=== PATIENT | female | born 1970 | race Caucasian/White ===

== ENCOUNTER → 2018-08-24 07:51 | Outpatient (POV) | payer BC, SELFPAY | PROVIDERS: Visit Provider Dermatology | DX: Z00.00 Encounter for general adult medical examination without abnormal findings (principal) ==

== ENCOUNTER → 2020-11-15 09:25 | Outpatient (CLI) | payer BC, SELFPAY ==
[2020-11-15 09:53] LABS: Basophils # 0.1 K/mm3 (0-0.2); Basophils % 0.8 % (0.1-2.0); Eosinophils # 0.2 K/mm3 (0.0-0.4); Eosinophils % 2.2 % (0.1-12.0); Hemoglobin 14.2 g/dL (12.2-16.2); Lymphocytes # 2.4 K/mm3 (0.7-4.5); Lymphocytes % 28.6 % (10-50); Mean Corpuscular HGB Conc 34.5 g/dL (31.8-35.4); Mean Corpuscular Hemoglobin 31.6 pg (27.0-31.2); Mean Corpuscular Volume 91.4 fl (81-99); Mean Platelet Volume 7.3 fl (7.4-10.4); Monocytes # 0.3 K/mm3 (0.1-1.0); Monocytes % 4.2 % (1.7-9.3); Neutrophils # 5.3 K/mm3 (1.8-7.8); Neutrophils % 64.1 % (37.0-80.0); Platelet Count 277 K/mm3 (142-424); Red Blood Count 4.49 M/mm3 (4.20-5.40); Red Cell Distribution Width 13.4 % (11.5-17.5); White Blood Count 8.3 K/mm3 (4.8-10.8)
[2020-11-15 12:42] LABS: Alanine Aminotransferase 27 U/L (12-78); Albumin Level 4.2 g/dl (3.5-5.0); Albumin/Globulin Ratio 1.4 (1.1-1.8); Alkaline Phosphatase 99 U/L (38-126); Anion Gap 13.4 mEq/L (5-15); Aspartate Amino Transferase 22 U/L (14-36); Bilirubin,Total 0.5 mg/dl (0.2-1.3); Blood Urea Nitrogen 14 mg/dl (7-17); Carbon Dioxide 23 mmol/L (22.0-30.0); Chloride 104 mmol/L (98-107); Chol/HDL Ratio 3.6 (1-3.5); Cholesterol 196 mg/dl (140-200); Estimated Glomerular Filt Rate 77 ml/min (>60); GFR (African American) 93 ML/MIN (>60); Glucose 91 mg/dl (74-100); HDL Cholesterol 55 mg/dl (40-60); Potassium 4.4 mmoL/L (3.5-5.1); Sodium 136 mmol/L (136-145); Total Protein,Serum 7.2 g/dl (6.3-8.2); Triglycerides 147 mg/dl (30-150); VLDL Cholesterol 29 mg/dL (0-40)
[2020-11-15 12:53] LABS: Direct LDL Cholesterol 115.44 mg/dL (100-129)
[2020-11-15 13:00] LABS: 25-OH Vitamin D, Total 25.7 ng/mL (30-100)
[2020-11-15 13:13] LABS: Thyroid Stimulating Hormone 3.28 uIU/mL (0.465-4.68)
[2020-11-15 13:31] LABS: Vitamin B12 331 pg/mL (239-931)
== END ==
PROVIDERS: Visit Provider Physician Assistant
DX: R53.83 Other fatigue (principal); E55.9 Vitamin D deficiency, unspecified; Z13.220 Encounter for screening for lipoid disorders
CPT/HCPCS: 36415; 80053; 80061; 82306; 82607; 84443; 85025

== ENCOUNTER → 2021-01-23 08:38 | Outpatient (CLI) | payer BC, SELFPAY ==
--- NOTE | 2021-01-23 08:44 | XR_ITS ---
PROCEDURE: XR FOOT WT BEARING RT 3V CLINICAL INDICATION: comparison COMPARISON: CR FTR3 FOOT-RT-3 VIEWS from 01/19/2015 FINDINGS: No fracture or dislocation. No lytic or blastic change. There is normal mineralization. The joint spaces are well-preserved. No significant degenerative/arthritic changes. No erosive changes evident. Other findings:Small calcaneal spur IMPRESSION: No acute findings. Dictated by: Baljeet Foley MD 01/23/2021 11:31 Baljeet Foley MD in [place] 01/23/2021 11:31
--- NOTE | 2021-01-23 08:44 | XR_ITS ---
PROCEDURE: XR FOOT WT BEARING LT 3V CLINICAL INDICATION: pain Foot pain COMPARISON: CR FTR3 FOOT-RT-3 VIEWS from 01/19/2015 FINDINGS: No fracture or dislocation. No lytic or blastic change. There is normal mineralization. The joint spaces are well-preserved. No significant degenerative/arthritic changes. No erosive changes evident. Other findings:Small bone spur at the calcaneus IMPRESSION: No acute findings. Dictated by: Baljeet Foley MD 01/23/2021 11:31 Baljeet Foley MD in [facility] 01/23/2021 11:31
== END ==
PROVIDERS: PCP Family Medicine; Visit Provider Podiatrist
DX: M79.672 Pain in left foot (principal); M79.671 Pain in right foot
CPT/HCPCS: 73630

== ENCOUNTER → 2021-03-04 14:17 | Outpatient (CLI) | payer BC, SELFPAY ==
--- NOTE | 2021-03-04 14:17 | MR_ITS ---
PROCEDURE INFORMATION: Exam: MR Left Lower Extremity Joint Without and With Contrast; Ankle Exam date and time: 03/04/2021 2:17 PM Age: 50 years old Clinical indication: Patient HX: Left foot/ankle pain TECHNIQUE: Imaging protocol: MR of the Left lower extremity without and with contrast. Exam focused on the ankle. Contrast material: PROHANCE; Contrast volume: 20 ml; Contrast route: IV; COMPARISON: CR XR FOOT WT BEARING LT 3V 01/23/2021 9:18 AM FINDINGS: Bones and cartilage: Cystic change is identified within the bone marrow of the medial talar dome, which is likely degenerative or due to osteochondral injury. No acute marrow edema. Spurring of the medial malleolus and adjacent talus. Calcaneal spurs. Thickening of the medial band of the proximal plantar fascia with minimal adjacent edema. This is consistent with plantar fasciitis. Joint spaces: Minimal tibiotalar and subtalar joint effusions. LIGAMENTS: Distal tibiofibular syndesmosis: See Anterior talofibular ligament finding. Anterior talofibular ligament: There is increased signal intensity within the anterior talofibular ligament with mild adjacent edema. Partial tear is suggested. Partial tear is also suggested at the anterior tibiofibular ligament. Posterior talofibular ligament: Heterogeneous signal intensity of the posterior talofibular ligament. Partial tear cannot be excluded. Calcaneofibular ligament: Mild edema adjacent to the calcaneofibular ligament, consistent with ligament sprain or extension of adjacent soft tissue swelling. Deltoid ligament complex: A linear focus of increased STIR signal intensity is identified within the deltoid ligament, consistent with partial tear. TENDONS: Flexor tendons of foot: Unremarkable as visualized. Tibialis posterior tendon: Mild tenosynovitis of the posterior tibialis tendon. Peroneal tendons: Unremarkable as visualized. Extensor tendons of foot: Unremarkable as visualized. Tibialis anterior tendon: Unremarkable as visualized. Achilles tendon: Unremarkable as visualized. Tarsal canal (Sinus tarsi): Minimal edema within the sinus tarsi. Muscles: No visualized acute abnormality. Soft tissues: Mild soft tissue swelling surrounds the ankle. Plantar fascia: See Bones and cartilage finding. IMPRESSION: 1. Cystic change is identified within the bone marrow of the medial talar dome, which is likely degenerative or due to osteochondral injury. No acute marrow edema. 2. Partial tear of the deltoid ligament. 3. Suggested partial tears of the anterior talofibular and tibiofibular ligaments. 4. Mild edema adjacent to the calcaneofibular ligament, consistent with ligament sprain or extension of adjacent soft tissue swelling. 5. Mild tenosynovitis of the posterior tibialis tendon. 6. Mild soft tissue swelling surrounds the ankle. 7. Calcaneal spurs. Thickening of the medial band of the proximal plantar fascia with minimal adjacent edema. This is consistent with plantar fasciitis. 8. Additional findings described above.
--- NOTE | 2021-03-04 14:17 | MR_ITS ---
PROCEDURE INFORMATION: Exam: MR Left Lower Extremity Other Than Joint Without and With Contrast; Foot Exam date and time: 03/04/2021 2:17 PM Age: 50 years old Clinical indication: Left; Patient HX: Stress fracture, foot pain TECHNIQUE: Imaging protocol: MR of the Left lower extremity without and with intravenous contrast. Exam focused on the foot. Contrast material: PROHANCE; Contrast volume: 20 ml; Contrast route: IV; COMPARISON: 1. MR ANKLE LT WO/W CON 03/04/2021 2:50:53 PM 2. CR XR FOOT WT BEARING LT 3V 01/23/2021 9:18 AM FINDINGS: Bones and cartilage: For discussion of findings involving the ankle/hindfoot, refer to the MRI ankle report from the same day. Cystic change is identified within the bone marrow of the medial talar dome, which is likely degenerative or due to osteochondral injury. No acute marrow edema involving the talus. Calcaneal spurs. Linear foci of STIR hyperintensity are visualized within the 3rd metatarsal shaft, likely representing nutrient vessels. No definitive marrow edema involving the 3rd metatarsal shaft when correlated with postcontrast images. No acute marrow edema on the remainder of this study. For discussion of ligaments of the ankle, refer to the MRI ankle report from the same day. No dislocation of the foot. Joint spaces: Minimal tibiotalar and subtalar joint effusions. Small 1st and 2nd MTP joint effusions. Small 1st IP joint effusion. LIGAMENTS: Lisfranc ligament: No evidence of tear. TENDONS: Flexor tendons of foot: Unremarkable. No evidence of tear. Tibialis posterior tendon: Mild tenosynovitis of the posterior tibialis tendon. Peroneal tendons: Unremarkable as visualized. Extensor tendons of foot: Unremarkable. No evidence of tear. Tibialis anterior tendon: Unremarkable as visualized. Tarsal canal (Sinus tarsi): Edema within the sinus tarsi. Soft tissues: Mild soft tissue swelling of the ankle and dorsum of the foot. Plantar fascia: Thickening of the medial band of the proximal plantar fascia with minimal adjacent soft tissue edema. This is consistent with plantar fasciitis. IMPRESSION: 1. Cystic change is identified within the bone marrow of the medial talar dome, which is likely degenerative or due to osteochondral injury. No acute marrow edema involving the talus. 2. Calcaneal spurs. Thickening of the medial band of the proximal plantar fascia with minimal adjacent soft tissue edema. This is consistent with plantar fasciitis. 3. Mild soft tissue swelling of the ankle and dorsum of the foot. 4. Small effusions. 5. No definitive acute marrow edema involving the foot. 6. Mild tenosynovitis of the posterior tibialis tendon. 7. Additional findings described above.
== END ==
PROVIDERS: PCP Family Medicine; Visit Provider Podiatrist
DX: M25.372 Other instability, left ankle (principal); M76.72 Peroneal tendinitis, left leg; M79.672 Pain in left foot; M84.375A Stress fracture, left foot, initial encounter for fracture
CPT/HCPCS: 73720; 73723; A9576

== ENCOUNTER 2021-05-16 10:00 | Outpatient (RCR) | payer BC, SELFPAY ==
--- NOTE | 2021-03-20 16:23 | HMH.PTOPEV ---
PT Outpatient Evaluation Rehab PT Outpatient Evaluation Start: 03/20/21 16:06 Freq: Status: Active Protocol: Document 03/20/21 16:06 CHIKI (Rec: 03/20/21 16:23 CHIKI [id number]) Electronically Signed By Micky Sandoval, PT 03/20/21 16:06 Outpatient Therapy Subjective History Subjective History Patient is a 50 year old female presenting to outpatient PT with reports of L foot pain of insidious onset starting approx 3 months ago. Referring diagnosis metatarsal stress fracture and posterior-tib tendonitis. Patient has been in a CAM walker for approx 6 weeks. MD instructed to start weening out of boot per patient report . Comorbidities include hx of LBP and elevated BMI. Chief Complaint Pain,Stiff Symptom Type Ache Symptoms Relieved By Rest/Positioning,Ice,OTC Meds Symptoms Aggravated By Standing,Physical Activity, Walking Prior Functional Limitations None Current Functional Limitations Housework,Standing,Recreation Activity,Walking,Stairs, Balance Symptom Description Intermittent Level of pain today (0-10) 0 Pain scale - at its best (0-10) 0 Pain scale - at its worst (0-10) 4 Ankle/Foot Eval Gait Observation General Gait Pattern Observation No Deviations/Normal Palpation Tenderness left Ankle/Foot Palpation Findings Tenderness Ankle/Foot Palpation Overall Comment midsubstance/heads of 2/3 metatarsals. ROM Ankle/Foot Dorsiflexion w/Knee Extended -10 Active Range Motion (degrees) Ankle/Foot Dorsiflexion w/Knee Extended -5 Passive Range (degrees) Ankle/Foot Plantar Flexion Active Range WFL of Motion (degrees) Ankle/Foot Eversion Active Range of 15 Motion (degrees) Ankle/Foot Eversion Passive Range of WFL Motion (degrees) Ankle/Foot Inversion Active Range of 30 Motion (degrees) Ankle/Foot Inversion Passive Range of WFL Motion (degrees) Ankle/Foot ROM Limitations Soft Tissue Tightness Great Toe ROM Reason Not Measured Within Functional Limits Accessory Movements Metatarsal Accessory Movements that 2nd/3rd dorsal/ventral glide Elicit Symptoms MMT left Ankle Dorsiflexion Strength Grade 4 Good Ankle Plantarflexion Strength Grade 4 Good Foot Eversion Strength Grade 4- Good- Foot Inver
--- NOTE | 2021-04-18 17:40 | HMH.RHREAS ---
Rehab Reassessment Rehab OP Re-assessment Start: 04/18/21 17:34 Freq: Status: Active Protocol: Document 04/18/21 17:34 CHIKI (Rec: 04/18/21 17:40 CHIKI [id number]) Electronically Signed By Micky Sandoval, PT 04/18/21 17:34 Rehab Re-assessment Subjective Subjective Patient reports 70% improvement since start of care. Objective Objective Notes L AROM: DF -3; PROM WNL; INV 22; EV 19 MMT: DF 4+/5; PF WNL; INV/EV 4 /5 Pain: today 3/10; at worst 6/ 10 over past week Special tests negative Assessment Progress Assessment Progressing as Expected Assessment Notes Patient is tolerating progression of Rx well. Rx has consisted mainly of strength, mobilty, proprioceptive improvement, as well as modalities for pain/ inflammation. She continues to experience pain in the peroneal distribution, specifically peroneus brevis. She continues to have functional limitations with all standing and ambulatory activities. Patient goals met STG 2 Goals Not Met All others Revised Goals NA Plan Plan Continue with current POC. Frequency of Therapy 2x/week Duration of therapy 4 weeks Time and Billing Re-Eval Time 15 Re-Eval Billing Units 1 PHYSICIAN CERTIFICATION: I certify the specified therapy services for Radha Fernando are required, authorized, and reviewed every 30 days.
== END 2021-05-16 10:05 | disposition home or self-care (01) ==
LOC: PT 10:00
PROVIDERS: PCP Family Medicine; Visit Provider Podiatrist
DX: M84.375G Stress fracture, left foot, subsequent encounter for fracture with delayed healing (principal); S93.492D Sprain of other ligament of left ankle, subsequent encounter
CPT/HCPCS: 97010; 97014; 97033; 97110; 97112; 97163; 97164; 97530; G0283

== ENCOUNTER → 2021-08-02 15:33 | Outpatient (CLI) | payer BC, SELFPAY ==
[2021-08-02 16:25] LABS: Basophils # 0.1 K/mm3 (0-0.2); Basophils % 0.9 % (0.1-2.0); Eosinophils # 0.2 K/mm3 (0.0-0.4); Eosinophils % 2.1 % (0.1-12.0); Hematocrit 40.7 % (37.0-47.0); Hemoglobin 13.8 g/dL (12.2-16.2); Lymphocytes # 2.7 K/mm3 (0.7-4.5); Lymphocytes % 25.7 % (10-50); Mean Corpuscular HGB Conc 33.9 g/dL (31.8-35.4); Mean Corpuscular Hemoglobin 31.9 pg (27.0-31.2); Mean Corpuscular Volume 94.2 fl (81-99); Mean Platelet Volume 8.4 fl (7.4-10.4); Monocytes # 0.5 K/mm3 (0.1-1.0); Monocytes % 4.7 % (1.7-9.3); Neutrophils % 66.6 % (37.0-80.0); Platelet Count 343 K/mm3 (142-424); Red Blood Count 4.32 M/mm3 (4.20-5.40); White Blood Count 10.4 K/mm3 (4.8-10.8)
== END ==
PROVIDERS: Visit Provider Physician Assistant
DX: J06.9 Acute upper respiratory infection, unspecified (principal)
CPT/HCPCS: 36415; 85025

== ENCOUNTER → 2021-12-12 07:27 | Outpatient (CLI) | payer BC, SELFPAY ==
[2021-12-12 08:44] LABS: Alanine Aminotransferase 29 U/L (12-78); Albumin Level 3.9 g/dl (3.5-5.0); Albumin/Globulin Ratio 1.3 (1.1-1.8); Alkaline Phosphatase 124 U/L (38-126); Anion Gap 11.2 mEq/L (5-15); Aspartate Amino Transferase 27 U/L (14-36); Blood Urea Nitrogen 10 mg/dl (7-17); Calcium 9.5 mg/dl (8.4-10.2); Carbon Dioxide 24 mmol/L (22.0-30.0); Chloride 107 mmol/L (98-107); Chol/HDL Ratio 3.1 (1-3.5); Cholesterol 186 mg/dl (140-200); Estimated Glomerular Filt Rate 89 ml/min (>60); GFR (African American) 108 ML/MIN (>60); Globulin 2.9 g/dL (1.3-3.2); Glucose 97 mg/dl (74-100); HDL Cholesterol 60 mg/dl (40-60); Potassium 4.2 mmoL/L (3.5-5.1); Sodium 138 mmol/L (136-145); Total Protein,Serum 6.8 g/dl (6.3-8.2); Triglycerides 131 mg/dl (30-150); VLDL Cholesterol 26 mg/dL (0-40)
[2021-12-12 08:51] LABS: Bilirubin,Total 0.1 mg/dl (0.2-1.3)
[2021-12-12 08:55] LABS: Direct LDL Cholesterol 99.67 mg/dL (100-129)
[2021-12-12 09:01] LABS: 25-OH Vitamin D, Total 30.8 ng/mL (30-100)
[2021-12-12 09:15] LABS: Thyroid Stimulating Hormone 5.42 uIU/mL (0.465-4.68)
== END ==
PROVIDERS: PCP Family Medicine; Visit Provider Physician Assistant
DX: E66.9 Obesity, unspecified (principal); E55.9 Vitamin D deficiency, unspecified; Z13.220 Encounter for screening for lipoid disorders; Z68.41 Body mass index [BMI] 40.0-44.9, adult
CPT/HCPCS: 36415; 80053; 80061; 82306; 84443

== ENCOUNTER → 2022-02-07 08:46 | Outpatient (CLI) | payer BC, SELFPAY ==
[2022-02-07 10:15] LABS: Free T4 (Free Thyroxine) 0.87 ng/dl (0.78-2.19)
[2022-02-07 10:30] LABS: Thyroid Stimulating Hormone 2.11 uIU/mL (0.465-4.68)
== END ==
PROVIDERS: PCP Family Medicine; Visit Provider Physician Assistant
DX: E03.9 Hypothyroidism, unspecified (principal)
CPT/HCPCS: 36415; 84439; 84443

== ENCOUNTER 2022-04-11 12:16 | Emergency (ER) | payer BC, SELFPAY ==
[2022-04-11 15:02] VITALS: BP 111/95; PULSE 96; RESP 16; TEMP 36.8; O2SAT 99; BMI 39.1
--- NOTE | 2022-04-11 15:44 | EXP.UTC ---
Discharge Plan Disposition Patient Disposition: Home, Self-Care Condition: Good Prescriptions Prescriptions: New azithromycin [Zithromax] 250 mg tablet 250 mg PO UD DOSE PK Qty: 6 0RF Rx Instructions: Take two (2) tablets today, then one (1) tablet days #2 thru #5 benzonatate [benzonatate] 100 mg capsule 100 mg PO TIDP PRN (Reason: Cough) Qty: 30 0RF methylprednisolone 4 mg Tablets,Dose Pack 4 mg PO DIRECTED Qty: 21 0RF No Action venlafaxine 75 mg capsule,extended release 24hr PO meloxicam [Mobic] 7.5 mg tablet 7.5 mg PO ONCE Qty: 30 2RF Referrals Follow up/Referrals: Heath Carmen MD [Primary Care Provider] - See instructions Activity Restrictions/Add. Instructions Additional Instructions/Restrictions: Drink plenty of fluids. Take tylenol or ibuprofen for pain or fever. Take the medications as directed. Follow up with your regular doctor. GO TO THE ER FOR ANY WORSENING SYMPTOMS Clinical Impressions Clinical Impression: Sinusitis Instructions Patient Instructions: Sinusitis, DI for Sinusitis Discharge ED Provider: Douglas Harrington [facility] General Stated complaint: cough, sinus pressure, bilateral ear pain Mode of Arrival: Ambulatory Source of Information: Patient Limitations: No Limitations Time Seen by Provider: 04/11/22 15:44 Description of Symptoms (Recalled from Triage Doc. by RN): pt c/o congestion, sinus pressure and ears feel full started Thursday HEENT Symptoms (Recalled from RN notes): Yes (sinus congestion/pressure) Resp Symptoms (Recalled from RN notes): No Skin Symptoms (Recalled from RN notes): No MS Symptoms (Recalled from RN notes): No Functional Status (Recalled from RN notes): na History of Present Illness Provider Complaint: She states that for the past 3 days she has had scratchy sore throat, malaise, sinus drainage and a cough. She refuses any covid-19 or viral testing. Related Data Home Medications Medication Instructions Recorded Confirmed venlafaxine 75 mg capsule,extended cap PO 02/12/21 04/22/21 release 24 hr Previous Rx's Medication Instructions Recorded meloxicam 7.5 mg tablet (Mobic) 7.5 mg PO ONCE pain #30 tabs 02/12/21 azithromycin 250 mg tablet 250 mg PO UD DOSE PK #6 tabs 04/11/22 (Zithromax) benzonatate 100 mg capsule 100 mg PO TIDP PRN Cough #30 caps 04/11/22 methylprednisolone 4 mg tablets in 4 mg PO DIRECTED #21 tabs 04/11/22 a dose pack Allergies Allergy/AdvReac Type Severity Reaction Status Date / Time No Known Allergies Allergy Verified 04/11/22 15:04 Worker's Comp Is this a Worker's Comp case?: No PFSH PFSH Medical History Anxiety Surgical History History of section Social History Smoking Status: Never smoker alcohol intake: never current occupational status: employed Travel in the last 8 weeks: None ROS Obtained: Yes All systems reviewed & no additional complaints except as documented Constitutional Constitutional: Denies chills and Denies fever(s) Eyes Eyes: Denies eye discharge ENT Ears, Nose, Mouth, and Throat: Reports as per HPI Cardiovascular Cardiovascular: Denies chest pain Respiratory Respiratory: Denies chest congestion and Reports cough Gastrointestinal Gastrointestingal: Reports nausea; Denies abdominal pain, constipation, cramping, diarrhea or vomiting Musculoskeletal Musculoskeletal: Denies arthralgias Integumentary/Breasts Skin/Breast: Denies rash Neurologic Neurologic: Denies paresthesias Physical Exam General General appearance: alert and in no apparent distress Head Head exam: atraumatic, normocephalic and normal inspection Eye Eye exam: Present normal appearance, PERRL and EOMI ENT ENT exam: Present normal exam, normal oropharynx, mucous membranes moist, TM's nor
[2022-04-11 15:52] VITALS: BP 111/95; PULSE 96; RESP 16; TEMP 36.8; O2SAT 99
== END 2022-04-11 16:04 | disposition home or self-care (01) ==
PROVIDERS: Emergency Provider Nurse Practitioner Family; PCP Family Medicine
DX: J32.9 Chronic sinusitis, unspecified (principal)
CPT/HCPCS: 99212; G0463

== ENCOUNTER 2022-06-22 13:04 | Emergency (ER) | payer BC, SELFPAY ==
[2022-06-22 13:15] VITALS: BP 152/96; PULSE 101; RESP 20; TEMP 36.6; O2SAT 98; BMI 40.6
[2022-06-22 13:35] LABS: UTC Strep Screen (Rapid) Negative (Negative)
--- NOTE | 2022-06-22 13:42 | EXP.UTC ---
Discharge Plan Disposition Patient Disposition: Home, Self-Care Condition: Good Prescriptions Prescriptions: New azithromycin [Zithromax Z-Anshu] 250 mg tablet See Rx Instructions .ROUTE .COMPLEX 5 Days Qty: 6 0RF Rx Instructions: For 250 mg dose pack: take 500 mg today (day 1), then 250 mg for 4 days (days 2-5) No Action venlafaxine 75 mg capsule,extended release 24hr 75 cap PO DAILY levothyroxine 25 mcg tablet 25 mcg PO DAILY Saxenda 3 mg/0.5 mL (18 mg/3 mL) pen injector 1 mg SQ WEEKLY Referrals Follow up/Referrals: Heath Carmen MD [Primary Care Provider] - See instructions Activity Restrictions/Add. Instructions Additional Instructions/Restrictions: *Monitor Temp, Over the counter Motrin or Tylenol as directed/as needed Tylenol every 4 hours and Motrin every 6 hours (as long as your family doctor has told you that you can take it) for fever or pain. and straight to ER if unable to lower temp less than 101.0 after medication given *Warm salt water gargles may help to soothe the throat *Throat Lozenges? *Warm fluids like tea with honey may help to soothe the throat? *Sleep elevated *Humidifier/Vaporizer Your throat swab was sent for culture. Those results are typically sent to your primary care. Be sure to follow up in 2-3 days with your family doctor/primary care physician if no improvement so they can review those result and treat if necessary. If you don?t have a primary care doctor, I recommend you get one but in the mean time, you will have to return to a walk in clinic Follow up IMMEDIATELY for new or worsening symptoms or no Noticeable improvement over the next 48-72 hours. 911 for difficulty breathing or swallowing Clinical Impressions Clinical Impression: Pharyngitis Instructions Patient Instructions: Sore Throat, Azithromycin Discharge ED Provider: Nery Melara [facility] General Stated complaint: sore throat Mode of Arrival: Ambulatory Source of Information: Patient Limitations: No Limitations Time Seen by Provider: 06/22/22 13:42 Description of Symptoms (Recalled from Triage Doc. 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 02/12/21 06/22/22 release 24 hr levothyroxine 25 mcg tablet 25 mcg PO DAILY . 06/22/22 06/22/22 liraglutide (weight loss) 3 mg/0.5 1 mg SQ WEEKLY . 06/22/22 06/22/22 mL (18 mg/3 mL) subcut pen injector (Saxenda) Previous Rx's Medication Instructions Recorded azithromycin 250 mg tablet See Rx Instructions PO .COMPLEX 5 06/22/22 (Zithromax Z-Anshu) days #6 tabs Allergies Allergy/AdvReac Type Severity Reaction Status Date / Time No Known Allergies Allergy Verified 06/22/22 13:23 Worker's Comp Is this a Worker's Comp case?: No [facility] Disclaimer: The information contained in this section may have been updated after the patient was seen, as this information can be updated by other users. Medical History Anxiety Surgical History History of section Social History Smoking Status: Never smoker alcohol intake: never current occupational status: employed Travel in the last 8 weeks: None ROS Obtained: Yes All systems reviewed & no
[2022-06-22 14:04] VITALS: BP 152/96; PULSE 101; RESP 20; TEMP 36.6; O2SAT 100
== END 2022-06-22 14:05 | disposition home or self-care (01) ==
PROVIDERS: Emergency Provider Nurse Practitioner; PCP Family Medicine
DX: J02.9 Acute pharyngitis, unspecified (principal)
CPT/HCPCS: 87880; 99212; G0463

== ENCOUNTER → 2023-03-21 09:22 | Outpatient (CLI) | payer BC, SELFPAY ==
[2023-03-21 11:06] LABS: Alanine Aminotransferase 30 U/L (12-78); Albumin Level 4.1 g/dl (3.5-5.0); Albumin/Globulin Ratio 1.3 (1.1-1.8); Alkaline Phosphatase 109 U/L (38-126); Anion Gap 13.3 mEq/L (5-15); Aspartate Amino Transferase 28 U/L (14-36); Bilirubin,Total 0.5 mg/dl (0.2-1.3); Blood Urea Nitrogen 14 mg/dl (7-17); Calcium 9.2 mg/dl (8.4-10.2); Carbon Dioxide 23 mmol/L (22.0-30.0); Chloride 105 mmol/L (98-107); Chol/HDL Ratio 3.9 (1-3.5); Cholesterol 184 mg/dl (140-200); Estimated Glomerular Filt Rate 76 ml/min (>60); GFR (African American) 92 ML/MIN (>60); Globulin 3.1 g/dL (1.3-3.2); Glucose 101 mg/dl (74-100); HDL Cholesterol 47 mg/dl (40-60); Potassium 4.3 mmoL/L (3.5-5.1); Sodium 137 mmol/L (136-145); Total Protein,Serum 7.2 g/dl (6.3-8.2); Triglycerides 122 mg/dl (30-150); VLDL Cholesterol 24 mg/dL (0-40)
[2023-03-21 11:16] LABS: Direct LDL Cholesterol 104.17 mg/dL (100-129)
[2023-03-21 11:22] LABS: 25-OH Vitamin D, Total 19.7 ng/mL (30-100); Free T4 (Free Thyroxine) 0.92 ng/dl (0.78-2.19)
[2023-03-21 11:35] LABS: Thyroid Stimulating Hormone 1.98 uIU/mL (0.465-4.68)
== END ==
PROVIDERS: PCP Family Medicine; Visit Provider Physician Assistant
DX: E03.9 Hypothyroidism, unspecified (principal); E55.9 Vitamin D deficiency, unspecified; Z13.220 Encounter for screening for lipoid disorders; Z79.899 Other long term (current) drug therapy
CPT/HCPCS: 36415; 80053; 80061; 82306; 84439; 84443

== ENCOUNTER 2025-03-21 15:18 | Outpatient (CLI) | payer BC, SELFPAY ==
--- OUTSIDE RECORDS SUMMARY | 2024-01-08 05:45 | XMS_ITS ---
Author Organization [facility] Address [address] [place] [id number] Care Team Providers Care Batch Trucker Name Role Phone Miguel Carmen Primary Care Provider Michelle Granados [phone] Allergies Allergen (clinical drug ingredient) Drug/Non Drug Allergy documented on EMR Reaction Allergy Type Onset Date Status cefdinir Cefdinir hives Drug Allergy Active methylprednisolone Medrol hives Drug Allergy Active Results Component Value Reference Range Notes Glycohemoglobin A1c (in hous e) Reviewed date:01/12/2024 08:52:04 PM Interpretation:5.2 Performing Lab: Notes/Report: 5.2 glycohemoglobin 5.2% 5 - 6.5 % P-Arthritis Panel, [facility] Reviewed date:01/12/2024 08:52:04 PM Interpretation:crp 0.92 Performing Lab: Notes/Report: Test performed by [facility] [address] [place] [address] , [address], [place] [address] Toni Jiang MD, Binder Cutter Hand CLIA: [id number] Erythrocyte Sedimentation Ra te (ESR), Automated 20 <31 mm/hr Rheumatoid Factor <10 <14.1 IU/mL C-Reactive Protein (CRP) 0.92 <0.50 mg/dL Antinuclear Antibodies (TYRESE) Screen, Reflex TYRESE 9 Panel Negative Negative Test performe d by Multiplex Bead Immunoassay methodology. Antinuclear Antibodies (TYRESE) Result Note SEE COMMENT For positive Autoantibodies, please refer to the interpretive chart here: [email or web address] CCP Antibodies <0.5 <0.5-3.0 U/mL P-T4 Free (thyroxine) Reviewed date:01/12/2024 08:52:04 PM Interpretation:Normal Performing Lab: Notes/Report: Test performed by [facility] [address] [place] [address] , [address], [place] [address] Toni Jiang MD, Binder Cutter Hand CLIA: [id number] Thyroxine Free (free T4) 0.86 0.86-1.76 ng/dL P-TSH Reviewed date:01/12/2024 08:52:04 PM Interpretation:Normal Performing Lab: Notes/Report: Test performed by [facility] [address] [place] [address] , [address], [place] [address] Toni Jiang MD, Binder Cutter Hand CLIA: [id number] TSH 3.13 0.43-5.25 mU/L P-Vitamin D 25-Hydroxy Reviewed date:01/12/2024 08:52:04 PM Interpretation:40.5 Performing Lab: Notes/Report: Test performed by [facility] [address] [place] [address] , [address], [place] [address] Toni Jiang MD, Binder Cutter Hand CLIA: [id number] Vitamin D 25-Hydroxy 40.5 30.0-100.0 ng/mL Interpretation [...] Last Name Roberta Referring Provider Speciality Physician Home Furnishings Sales Representative Referred Provider PODIATRY, . Referred Provider Specialty Podiatry General Notes Michelle Granados 01/07 1:07:11 PM > Will need appt with Aurora Bundy Brynn 01/08/2024 1:10:32 PM > faxed to [facility] Podiatry Referral Priority Routine REASON FOR VISIT [...] 01/08/2024 Active Vitamin D3 50 MCG (1999 MA) as directed orally once a day; Duration: 30 day(s) 11/15/2020 Active Problems Problem Type SNOMED Code ICD Code Onset Dates Problem Status W/U Status Risk Notes Problem Morbid obesity (202673747) Obesity, morbid, BMI 40.0-49.9 (E66.01) Active confirmed Vital Signs Blood pressure systolic 160 mm Hg 01/08/20 24 Blood pressure diastolic 80 mm Hg 024 Heart Rate 80 /min 01/08/2024 Height 65 in 01/08/2024 Weight 258.4 lbs 01/08/2024 BMI 43.00 kg/m2 01/08/2024 Encounters Encounter Location Date Provider Diagnosis [facility] [address] [facility] [address] [place] [phone] 01/08/2024 Michelle Roberta Plantar fasciitis, l eft [...] Notes * MICHAEL GABRIELeDOB:1970 (54 yo F)Acc No.[id number]:01/08/2024 Progress Notes Patient: MICHAEL CESPEDES Provider: JAVED Choi :1970 A ge:53 Y S ex:Female Date:01/08/2024 Address:[address] [place] [address] , [facility], [id number] Pcp:Miguel Carmen Subjective: * Chief Complaints: * [...] History: Xochilt DYER - Dr. Robles in [place]. * Surgical History: T hyroidectomy , 06/09/2006. * Hospitalization/Major Diagno stic Procedure: F ell on [facility] ER 05/2010. * Family History: F ather: [...] MG Tablet as directed Orally , Discontinued Ugtjdahij-Ntnyqhzh-NW 30-2-10 MG/5ML Syrup 5-10 ml orally 4 [...] mucosa moist and WNL, no erythema. N raisa: s upple, no lymphadenopathy. C hest: n [...] 0.86 0.86-1.76 - ng/d L * RobertaMichelle Lowe 01/12/2024 8: 51:51 PM > discussed with patient ?LAB: P-TSH (Collection Date & Time - 01/08/2024 10:37 AM)?Normal* Value Reference Range T SH 3.13 0.43-5.25 - mU/L * RobertaMichelle Lowe 01/12/2024 8: 51:51 PM > discussed with patient * Procedure Codes: 3 6416 CAPILLARY BLOOD DRAW, 14823 GLYCATED HEMOGLOBIN TEST, Modifiers: QW * Follow Up: v ia phone to report test results * Images: Billing Information: * Visit Code: 47735 Office Visit, Est Pt., Level 4. * Procedure Codes: 12323 CAPILLARY BLOOD DRAW. 99998 GLYCATED HEMOGLOBIN TEST. 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
--- OUTSIDE RECORDS SUMMARY | 2024-04-25 09:45 | XMS_ITS ---
Author Organization [facility] Address [address] [place] [id number] Care Team Providers Care Lump Roller Name Role Phone Miguel Carmen Primary Care Provider [phone] Alva Stoddard [phone] Allergies Allergen (clinical drug ingredient) Drug/Non Drug Allergy documented on EMR Reaction Allergy Type Onset Date Status cefdinir Cefdinir hives Drug Allergy Active methylprednisolone Medrol hives Drug Allergy Active Results Component Value Reference Range Notes Influenza Screen (in house) Reviewed date:04/25/2024 07:46:14 PM Interpretation:neg Performing Lab: Notes/Report: neg results neg CBC Fingerstick (in house) Reviewed date:04/25/2024 03:29:42 PM Interpretation: Performing Lab: Notes/Report: wbc 9.4 3.5 - 10 lym 29.9 15 - 50 mid 6.2 2 - 15 gran 63.9 35 - 80 rbc 4.45 3.5 - 5.5 hgb 13.6 11.5 - 16.5 hct 40.8 35 - 55 mcv 91.5 75 - 100 mch 30.5 25 - 35 mchc 33.3 31 - 38 plat 229 100 - 400 Covid test (in house) Reviewed date:04/25/2024 07:45:48 PM Interpretation:neg Performing Lab: Notes/Report: neg Result: neg REASON FOR VISIT cough & congestion Medications Medication SIG (Take, Route, Frequency, Duration) Notes Start Date End Date Status Amoxicillin-Pot Clavulanate 875-125 MG 1 tablet Orally every 12 hrs; Duration: 7 day(s) 04/25/2024 Active Venlafaxine HCl ER 75 MG 1 cap(s) orally once a day; Duration: 90 days Active Vitamin D3 50 MCG (1999) as directed orally once a day; Duration: 30 day(s) 11/15/2020 Active Levothyroxine Sodium 25 MCG 1 tab(s) ora lly once a day; Duration: 30 day(s) Active Wegovy 1.7 MG/0.75ML 1.7 mg Subcutaneous once a week 03/03/2024 Active Meloxicam 15 MG 1 tablet Orally Once a day; Duration: 90 days 01/08/2024 Active Vital Signs Blood pressure systolic 116 mm Hg 04/25/20 24 Blood pressure diastolic 80 mm Hg 024 Heart Rate 78 /min 04/25/2024 Height 65 in 04/25/2024 Weight 246.0 lbs 04/25/2024 BMI 40.93 kg/m2 04/25/2024 Encounters Encounter Location Date Provider Diagnosis [facility] [address], [place] [id number] 04/25/2024 Alva Stoddard Sinusitis J32 .9 Assessments Encounter Date Diagnosis (ICD Code) Assessment Notes Treatment Notes Treatment Clinical Notes Section Notes 04/25/2024 Sinusitis (ICD-10 - J32.9) fluids, rest, supportive measures for fever/symptom relief, fluids, rest, supportive measures for fever/symptom relief Plan Of Treatment Medication Medication Name Sig Start Date Stop Date Notes Amoxicillin-Pot Clavulanate 875-125 MG 1 tablet Orally every 12 hrs; Duration: 7 day(s) 04/25/2024 Treatment Notes Assessment Notes Sinusitis fluids, rest, suppor tive measures for fever/symptom relief, fluids, rest, supportive measures for fever/symptom relief Next Appt Details Follow Up: prn, Reason: Progress Notes * MICHAEL GABRIELOB:1970 (54 yo F)Acc No.[id number]:04/25/2024 Progress Notes Patient: MICHAEL CESPEDESkie Provider: RANDELL Ritter :1970 A ge:53 Y S ex:Female Date:04/25/2024 Address:[facility] [address], [place], [id number] Pcp:Miguel Carmen Subjective: * Chief Complaints: * 1 . Cough & congestion. * HPI: E NT/respiratory: 53 year old female presents with c/o sore throat p rior to cough. c/o cough P t sts she has some drainage down her nose and into her throat. Pt sts hr symptoms started about a week ago. c/o nasal congestion S inus pressure in her head. c/o post nasal drainage. Denies : Fever. D enies : ear pain. D enies : Chest Pain. D enies : Short of Breath. D enies : headache. D enies : chest congestion. D enies : smoking. D enies : dizziness. D enies : body aches. eating and drinking ok. * ROS: D ERMATOLOGY: no R gino. n o H nataly. G ASTROENTEROLOGY: no N ausea. n o V omiting. n o D iarrhea.? U ROLOGY: no D ifficulty urinating. n o B lood in urine. * Medical History: Xochilt Robles in [place]. * Surgical History: T hyroidectomy , 06/09/2006. * Hospitalization/Major Diagno stic Procedure: Patrice hernandes on [facility] ER 05/2010. * Family History: F ather: [...] Medications: T aking Vitamin D3 50 MCG (1999 UT) Tablet as directed orally once a day , Taking Venlafaxine HCl ER 75 MG Capsule Extended Release 24 Hour 1 cap(s) orally once a day , Taking Meloxicam 15 MG Tablet 1 tablet Orally Once a day , Taking Wegovy 1.7 MG/0.75ML Solution Auto-injector 1.7 mg Subcutaneous once a week , Taking Levothyroxine Sodium 25 MCG Tablet 1 tab(s) orally once a day , Medication List reviewed and reconciled with the patient * Allergies: C efdinir: hives, Medrol: hives. Objective: * Vitals: W t:246.0, Temp:98.3, BP:116/80, HR:78, Nurse:[facility], Ht: 65, BMI:40.93. * Examination: E NT/Respiratory: General Appearance: well nourished and hydrated, NAD, alert. E yes: sclera and conjunctiva clear. E ars: auditory canals normal bilaterally, tympanic membranes normal bilaterally. N ose : nares patent. S inuses : non tender bilaterally. O ral cavity : no erythema or exudate seen on pharynx. N raisa :? supple, no cervical lymphadenopathy. H eart : RRR. L ungs: CTAB A&P. Assessment: * Assessment: 1. S inusitis - J32.9 (Primary) Plan: * Treatment: * Labs: * L ab: CBC Fingerstick (in house) (Collection Date & Time - 04/25/2024) Value Reference Range w bc 9.4 3.5 - 10 * l ym 29.9 15 - 50 * m id 6.2 2 - 15 * g ran 63.9 35 - 80 * r bc 4.45 3.5 - 5.5 * h gb 13.6 11.5 - 16.5 * h ct 40.8 35 - 55 * m cv 91.5 75 - 100 * m ch 30.5 25 - 35 * m chc 33.3 31 - 38 * p lat 229 100 - 400 * Alesha Chase 04/25/2024 3:19: 50 PM > Provider reviewed results while patient in office.Alva Stoddard 04/25/2024 3:29:40 PM > ?Lab: Covid test (in house) (Collection Date & Time - 04/25/2024)?neg* Value Reference Range R esult: neg * Alesha Chase 04/25/2024 3:47: 49 PM > Provider reviewed results while patient in office.Alva Stoddard 04/25/2024 7:45:46 PM > ?Lab: Influenza Screen (in house) (Collection Date & Time - 04/25/2024)?neg * Value Reference Range r esults neg * Alesha Chase 04/25/2024 3:47: 33 PM > Provider reviewed results while patient in office.StoddardLorenaAlva 04/25/2024 7:46:12 PM > * Procedure Codes: 3 6416 CAPILLARY BLOOD DRAW, 16255 CBC WITH AUTO DIFF, 12157 Flu Test- Nasal Swab, Modifiers: QW , 87530 COVID TEST IN HOUSE, Modifiers: QW * Follow Up: p rn * Images: Billing Information: * Visit Code: 78517 Office Visit, Est Pt., Level 3. * Procedure Codes: 98276 CAPILLARY BLOOD DRAW. 82408 CBC WITH AUTO DIFF. 32254 Flu Test- Nasal Swab. Modifiers: QW 16128 COVID TEST IN HOUSE. Modifiers: QW * Electronic signature of Brittni ha Arlyn , JACOB on 03/21/2025 at 03:23 PM EST Sign off status: Pending * Provider: RANDELL Ritter Date: 06/26/2023 Generated for Cinthia hale/Dayana/Ernesto on: 05/21/2024 03:23 PM EST History and Physical Notes * HPI (History of Present Illness) Category Sub-Category Detail Notes Category Not es ENT/respiratory sore throat prior to cough eating an d drinking ok ear pain Short of Breath Chest Pain cough Pt sts she has some drainage down her nose and into her throat. Pt sts hr symptoms started about a week ago Fever post nasal drainage headache chest congestion nasal congestion Sinus pressure in he r head smoking dizziness body aches Examination Category Sub-Category Detail Notes Category Not es ENT/Respiratory Oral cavity : no erythema or exudate s een on pharynx Sinuses : non tender bilateral ly Ears: auditory canals norm al bilaterally, tympanic membranes normal bilaterally Neck : supple, no cervical lymphadenopathy Heart : RRR Lungs: CTAB A&P General Appearance: well nourished and h ydrated, NAD, alert Nose : nares patent Eyes: sclera and conjuncti va clear
--- OUTSIDE RECORDS SUMMARY | 2024-08-05 06:15 | XMS_ITS ---
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 Name Role Phone Miguel Carmen Primary Care Provider [phone] Michelle Granados [phone] Allergies Allergen (clinical drug ingredient) Drug/Non Drug Allergy documented on EMR Reaction Allergy Type Onset Date Status cefdinir Cefdinir hives Drug Allergy Active methylprednisolone Medrol hives Drug Allergy Active REASON FOR VISIT follow up on weight loss medication Medications Medication SIG (Take, Route, Frequency, Duration) Notes Start Date End Date Status Wegovy 2.4 MG/0.75ML 0.75 mL Subcutaneou s; Duration: 30 days Active Venlafaxine HCl ER 75 MG 1 cap(s) orally once a day; Duration: 90 days Active Vitamin D3 50 MCG (1999) as directed orally once a day; Duration: 30 day(s) 11/15/2020 Active Levothyroxine Sodium 25 MCG 1 tab(s) ora lly once a day; Duration: 30 day(s) Active Meloxicam 15 MG 1 tablet Orally Once a day; Duration: 90 days 01/08/2024 Active Problems Problem Type SNOMED Code ICD Code Onset Dates Problem Status W/U Status Risk Notes Problem Body mass index 40+ - morbidly obese (431066252) BMI 40.0-44.9, adult (Z68.41) Active confirmed Vital Signs Blood pressure systolic 120 mm Hg 08/06/19 25 Blood pressure diastolic 80 mm Hg 025 Heart Rate 90 /min 08/05/2024 Height 65 in 08/05/2024 Weight 234.6 lbs 08/05/2024 BMI 39.04 kg/m2 08/05/2024 Encounters Encounter Location Date Provider Diagnosis [facility] [address] [place] [id number] 08/05/2024 Michelle Granados BMI 40.0-44.9, adult Z68.41 and Encounter for weight management Z76.89 Assessments Encounter Date Diagnosis (ICD Code) Assessment Notes Treatment Notes Treatment Clinical Notes Section Notes 08/05/2024 BMI 40.0-44.9, adult (ICD-10 - Z68.41) Patient is doing well on wegovy. Her BMI has dropped to 39 and her weight is down. She would benefit from continuing on the medication. 08/05/2024 Encounter for weight management (ICD-10 - Z76.89) Plan Of Treatment Treatment Notes Assessment Notes BMI 40.0-44.9, adult Patient is doing we ll on wegovy. Her BMI has dropped to 39 and her weight is down. She would benefit from continuing on the medication. Next Appt Details Follow Up: 3 Months, Reason: Progress Notes * MICHAEL GABRIEL AshelyeDOB:1970 (54 yo F)Acc No.[id number]:08/05/2024 Progress Notes Patient: MICHAEL CESPEDES Provider: JAVED Choi :1970 A ge:54 Y S ex:Female Date:08/05/2024 Address:[address], [place], [id number] Pcp:Miguel Carmen Subjective: * Chief Complaints: * 1 . Follow up on weight loss medication. * HPI: H PI: 54 year old female presents with c/o Here for follow up on:?Pt is here today for a f/u on weight loss medications. Pt sts she is doing well on Wegovy. * ROS: D ERMATOLOGY: no R gino. n o H nataly. G ASTROENTEROLOGY: no N ausea. n o V omiting. n o D iarrhea.? U ROLOGY: no D ifficulty urinating. n o B lood in urine. * Medical History: Xochilt Robles in [place]. * Surgical History: T hyroidectomy , 06/09/2006. * Hospitalization/Major Diagno stic Procedure: Patrice hernandes on Arm- [facility] ER 05/2010. * Family History: F [...] directed orally once a day , Taking Meloxicam 15 MG Tablet 1 tablet Orally Once a day , Taking Levothyroxine Sodium 25 MCG Tablet 1 tab(s) orally once a day , Taking Wegovy 2.4 MG/0.75ML Solution Auto-injector 0.75 mL Subcutaneous , Taking Venlafaxine HCl ER 75 MG Capsule Extended Release 24 Hour 1 cap(s) orally once a day , Medication List reviewed and reconciled with the patient * Allergies: C efdinir: hives, Medrol: hives. Objective: * Vitals: W t: 234.6, Temp: 98.5, BP: 120/80, HR: 90, Nurse: kalani, Ht: 65, BMI:39.04. * Examination: G eneral Examination: General Appearance: N AD. C hest: n ormal shape and expansion. H eart: R SR. L ungs: c lear to auscultation. A bdomen: bowel sounds present, soft and nontender, no organomegaly or masses, no guarding or rigidity. ? Assessment: * Assessment: 1. E ncounter for weight management - Z76.89 (Primary) 2 . B UT 40.0-44.9, adult - Z68.41 Plan: * Treatment: * Procedure Codes: 3 074F SYST BP LT 130 MM HG, 3079F DIAST BP 80-89 MM HG * Follow Up: 3 Months * Images: Billing Information: * Visit Code: 05867 Office Visit, Est Pt., Level 3. * Procedure Codes: 3074F SYST BP LT 130 MM HG. 3079F DIAST BP 80-89 MM HG. * Electronic signature of JAVED Norwood on 03/21/2025 at 03:23 PM EST Sign off status: Pending * Provider: JAVED Choi Date: 0 08/05/2024 Generated for Cinthia hale/Dayana/Ernesto on: 1 05/21/2024 03:23 PM EST History and Physical Notes * HPI (History of Present Illness) Category Sub-Category Detail Notes Category Not es HPI Here for follow up on: Pt is her e today for a f/u on weight loss medications. Pt sts she is doing well on Wegovy Examination Category Sub-Category Detail Notes Category Not es General Examination Heart: RSR Lungs: clear to auscultatio n Abdomen: bowel sounds present , soft and nontender, no organomegaly or masses, no guarding or rigidity General Appearance: NAD Chest: normal shape and exp ansion
--- OUTSIDE RECORDS SUMMARY | 2024-11-04 04:15 | XMS_ITS ---
Author Organization [facility] Address [address] [place] [id number] Care Team Providers Care Trash Collector Name Role Phone Miguel Carmen Primary Care Provider [phone] Michelle Granados Unavailable [phone] Allergies Allergen (clinical drug ingredient) Drug/Non Drug Allergy documented on EMR Reaction Allergy Type Onset Date Status cefdinir Cefdinir hives Drug Allergy Active methylprednisolone Medrol hives Drug Allergy Active Results Component Value Reference Range Notes CBC Venipuncture (in house) Reviewed date:11/09/2024 11:57:26 AM Interpretation:Normal Performing Lab: Notes/Report: Normal wbc 7.6 3.5 - 10 lymph 30.3 15 - 50 mid 7.4 2 - 15 gran 62.3 35 - 80 rbc 4.70 3.5 - 5.5 hgb 14.5 11.5 - 16.5 hct 43.5 35 - 55 mcv 92.4 75 - 100 mch 30.8 25 - 35 mchc 33.3 31 - 38 platlet 277 100 - 400 P-Comprehensive Metabolic Pa january (CMP) Reviewed date:11/09/2024 11:57:26 AM Interpretation:Normal Performing Lab: Notes/Report: Test performed by [employer], [employer] [address] [place] [address] , [address], [place] [address] Toni Jiang MD, Muffler Tender CLIA: [id number] Sodium 141 135-145 mmol/L Potassium 4.4 3.5-5.3 mmol/L Chloride 105 97-108 mmol/L CO2 24 22-32 mmol/L Glucose 87 65-99 mg/dL BUN 13 6-20 mg/dL Creatinine 0.83 0.50-1.00 mg/dL Calcium 9.5 8.6-10.4 mg/dL eGFR by Creatinine 85 >59 mL/min/1.73m2 Protein 6.8 6.0-8.3 g/dL Albumin 4.3 3.5-5.3 g/dL Alkaline Phosphatase 104 35-121 IU/L ALT (SGPT) 29 <5-47 IU/L AST (SGOT) 17 <5-40 IU/L Bilirubin, Total 0.3 <0.2-1.2 mg/dL A/G Ratio 1.7 1.1-2.5 P-T4 Free (thyroxine) Reviewed date:11/09/2024 11:57:26 AM Interpretation:Normal Performing Lab: Notes/Report: Test performed by [facility] [address] [place] [address] , [place] [address] Toni Jiang MD, Muffler Tender CLIA: [id number] Thyroxine Free (free T4) 0.97 0.86-1.76 ng/dL P-Hemoglobin A1C Reviewed date:11/09/2024 11:57:26 AM Interpretation:Normal Performing Lab: Notes/Report: Test performed by [facility] [address] [place] [address] , [address], [place] [address] Toni Jiang MD, Muffler Tender CLIA: [id number] Hemoglobin A1C 5.1 <5.7 % The following HbA1c ranges recommended by the [place] [employer] (ADA) may be used as an aid in the diagnosis of diabetes mellitus. HbA1c Suggested Diagnosis >=6.5% Diabetic 5.7% - 6.4% Pre-Diabetic <5.7% Non-Diabetic P-Lipid Panel Reviewed date:11/09/2024 11:57:26 AM Interpretation:Normal Performing Lab: Notes/Report: Test performed by [facility] [address] [place], [place] [address] Wellington Diaz, [place] [address] Toni Jiang MD, Muffler Tender CLIA: [id number] Cholesterol 185 <200 mg/dL Triglycerides 105 <150 mg/dL HDL Cholesterol 51 >39 mg/dL Cholesterol / HDL Ratio 3.63 0.00-4.44 Ratio Non-HDL Cholesterol 134 <130 mg/dL LDL Cholesterol (Calculation) 113 <130 mg/dL LDL Cholesterol Levels* Less than 100 mg/dL Optimal 100 to 129 mg/dL Near Optimal/ Above Optimal 130 to 159 mg/dL Borderline High 160 to 189 mg/dL High 190 mg/dL and above Very High * Categories as recommended by the 2004 ATPIII guidelines LDL/HDL Ratio 2.2 <3.3 Ratio LDL Cholesterol Patient History Test Date: 11/04/2024 LDL Results: 113 Units: mg/dL % Change: - P-TSH Reviewed date:11/09/2024 11:57:26 AM Interpretation:Normal Performing Lab: Notes/Report: Test performed by [facility] [address] [place] [address] [place] [address] Toni Jiang MD, Muffler Tender CLIA: [id number] TSH 2.65 0.43-5.25 mU/L P-Vitamin D 25-Hydroxy Reviewed date:11/09/2024 11:57:26 AM Interpretation:39.9 Performing Lab: Notes/Report: Test performed by [facility] [address] [place] [address] [place] [address] Toni Jiang MD, Muffler Tender CLIA: [id number] Vitamin D 25-Hydroxy 39.9 30.0-100.0 ng/mL Interpretation of Vitamin D 25 OH: < 20 ng/mL - Deficiency 20 - 29 ng/mL - Insufficiency 30 - 100 ng/mL - Sufficiency > 100 ng/mL - Super-therapeutic- toxicity may occur above this level. Clinical correlation required. Estimated Average Glucose Reviewed date:11/09/2024 11:57:26 AM Interpretation:Normal Performing Lab: Notes/Report: Test performed by [facility] [address] , [address], [place] [address] Toni Jiang MD, Muffler Tender CLIA: [id number] Estimated Average Glucose (eAG) 100 Estimated Average Glucose (eAG) is calculated using the equation eAG = (28.7 x HbA1c) - 46.7 based on the guidelines established by the ADA. If the patient has certain diseases including kidney disease, sickle cell anemia, thalassemia, or is taking medications such as dapsone, erythropoietin, or iron, eAG should not be evaluated. REASON FOR VISIT 3 month check, Needs labs, mammogram, colon cancer screening, & shingles vaccine Medications Medication SIG (Take, Route, Frequency, Duration) Notes Start Date End Date Status Wegovy 2.4 MG/0.75ML INJECT 2.4 MG UNDER THE SKIN WEEKLY Subcutaneous once a week Active Venlafaxine HCl ER 75 MG 1 cap(s) orally once a day; Duration: 90 days Active Levothyroxine Sodium 25 MCG 1 tab(s) ora lly once a day; Duration: 30 day(s) Active Vitamin D3 50 MCG (1999) as directed orally once a day; Duration: 30 day(s) 11/15/2020 Active Meloxicam 15 MG 1 tablet Orally Once a day; Duration: 90 days 01/08/2024 Active Cyclobenzaprine HCl 5 MG 1 tab Orally 3 times a day, prn 11/04/2024 Active dexAMETHasone 4 MG 1 tablet Orally twic e a day; Duration: 5 days 11/04/2024 Active Problems Problem Type SNOMED Code ICD Code Onset Dates Problem Status W/U Status Risk Notes Problem Sciatic nerve lesion (356811069) Piriformis syndrome of right side (G57.01) Active confirmed Vital Signs Blood pressure systolic 120 mm Hg 11/05/19 Blood pressure diastolic 80 mm Hg 025 Heart Rate 90 /min 11/04/2024 Height 65 in 11/04/2024 Weight 231.6 lbs 11/04/2024 BMI 38.54 kg/m2 11/04/2024 Encounters Encounter Location Date Provider Diagnosis [facility] [address] [facility] [address] [place], [place] [id number] 11/04/2024 Michelle Granados Encounter for weight management Z76.89 ; Piriformis syndrome of right side G57.01 ; Hypothyroidism (acquired) E03.9 ; Vitamin D deficiency E55.9 ; Screening for diabetes mellitus Z13.1 ; Polyarthritis M13.0 ; Screening, lipid Z13.220 ; Depression with anxiety F41.8 and Obesity, morbid, BMI 40.0-49.9 E66.01 Assessments Encounter Date Diagnosis (ICD Code) Assessment Notes Treatment Notes Treatment Clinical Notes Section Notes 11/04/2024 Encounter for weight management (ICD-10 - Z76.89) 11/04/2024 Piriformis syndrome of right side (ICD-10 - G57.01) Gave exercises to do at home. 11/04/2024 Hypothyroidism (acquired) (ICD-10 - E03.9) 11/04/2024 Vitamin D deficiency (ICD-10 - E55.9) 11/04/2024 Screening for diabetes mellitus (ICD-10 - Z13.1) 11/04/2024 Polyarthritis (ICD-10 - M13.0) 11/04/2024 Screening, lipid (ICD-10 - Z13.220) 11/04/2024 Depression with anxiety (ICD-10 - F41.8) 11/04/2024 Obesity, morbid, BMI 40.0-49.9 (ICD-10 - E66.01) Plan Of Treatment Medication Medication Name Sig Start Date Stop Date Notes Wegovy 2.4 MG/0.75ML INJECT 2.4 MG UNDER THE SKIN WEEKLY Subcutaneous once a week Cyclobenzaprine HCl 5 MG 1 tab Orally 3 times a day, prn 0 11/04/2024 dexAMETHasone 4 MG 1 tablet Orally twic e a day; Duration: 5 days 11/04/2024 Treatment Notes Assessment Notes Piriformis syndrome of right side Gave e xercises to do at home. Next Appt Details Follow Up: via phone to repo rt test results, Reason: Progress Notes * MICHAEL GABRIELeDOB:1970 (54 yo F)Acc No.[id number]:11/04/2024 Progress Notes Patient: MICHAEL CESPEDES Provider: JAVED Choi :1970 A ge:54 Y S ex:Female Date:11/04/2024 Address:[address] [place] [address] , [place], [id number] Pcp:Miguel Carmen Subjective: * Chief Complaints: * 1 . 3 month check. 2. Needs labs, mammogram, colon cancer screening, & shingles vaccine. * HPI: H PI: 54 year old female presents with c/o Patient is here today for?Pt is here today for a 3 month check up. Pt sts she is doing well and has no concerns . ? H ip/Thigh: c/o hip pain r ight. * ROS: D ERMATOLOGY: no R gino. n o H nataly. G ASTROENTEROLOGY: no N ausea. n o V omiting. n o D iarrhea.? U ROLOGY: no D ifficulty urinating. n o B lood in urine. * Medical History: Xochilt Robles in [place]. * Surgical History: T hyroidectomy , 06/09/2006. * Hospitalization/Major Diagno stic Procedure: F ell on [facility] ER 05/2010. * Family History: F ather: [...] tab(s) orally once a day , Taking Venlafaxine HCl ER 75 MG Capsule Extended Release 24 Hour 1 cap(s) orally once a day , Taking Wegovy 2.4 MG/0.75ML Solution Auto-injector INJECT 2.4 MG UNDER THE SKIN WEEKLY , Medication List reviewed and reconciled with the patient * Allergies: C efdinir: hives, Medrol: hives. Objective: * Vitals: W t: 231.6, Temp: 98.6, BP: 120/80, HR: 90, Nurse: kalani, Ht: 65, BMI:38.54. * Examination: G eneral Examination: General Appearance: N AD. H EENT: u nremarkable.?Oral cavity: n o lesions, mucosa moist and WNL, no erythema. N raisa: s upple, no lymphadenopathy. C hest: n ormal shape and expansion. H eart: R SR. L ungs: c lear to auscultation. A bdomen: b owel sounds present, soft and nontender, no organomegaly or masses. N eurologic Exam: I ntact, gait normal. S kin: n ormal, no rash. P eripheral pulses: n ormal (2+) bilaterally. B ack: n o spinal tenderness. E xtremities: no leg edema, ttp along right piriformis area and pain with figure 4 test. ? Assessment: * Assessment: 1. E ncounter for weight management - Z76.89 (Primary) 2 . P iriformis syndrome of right side - G57.01 3 . H ypothyroidism (acquired) - E03.9 ?4. V itamin D deficiency - E55.9 5 . S creening for diabetes mellitus - Z13.1 6 . P olyarthritis - M13.0 7 . S creening, lipid - Z13.220 8 . D epression with anxiety - F41.8 9 . O besity, morbid, BMI 40.0-49.9 - E66.01 Plan: * Treatment: 2. P iriformis syndrome of right side Start dexAMETHasone Tablet, 4 MG, 1 tablet, Orally, twice a day, 5 days, 10 Tablet, Refills 0; S tart Cyclobenzaprine HCl Tablet, 5 MG, 1 tab, Orally, 3 times a day, prn, 30, Refills 1. ? Notes: Gave exercises to do at home. 3. H ypothyroidism (acquired) L AB: P-T4 Free (thyroxine) (Collection Date & Time - 11/04/2024 08:58 AM) N ormal Value Reference Range T hyroxine Free (free T4) 0.97 0.86-1.76 - ng/d L * Nel Sherman 11/09/2024 11: 57:20 AM EDT > See phone encounter ?LAB: P-TSH (Collection Date & Time - 11/04/2024 08:58 AM)?Normal* Value Reference Range T SH 2.65 0.43-5.25 - mU/L * Nel Sherman 11/09/2024 11: 57:20 AM EDT > See phone encounter 4.?Vitamin D deficiency?LAB: P-Vitamin D 25-Hydroxy (Collection Date & Time - 11/04/2024 08:58 AM)? 39.9* Value Reference Range V itamin D 25-Hydroxy 39.9 30.0-100.0 - ng/mL * Nel Sherman 11/09/2024 11: 57:20 AM EDT > See phone encounter 5.?Screening for diabetes mellitus?LAB: P-Hemoglobin A1C (Collection Date & Time - 11/04/2024 08:58 AM)?Normal * Value Reference Range H emoglobin A1C 5.1 <5.7 - % * Nel Sherman 11/09/2024 11: 57:20 AM EDT > See phone encounter 6.?Screening, lipid?LAB: P-Lipid Panel (Collection Date & Time - 11/04/2024 08:58 AM)?Normal* Value Reference Range C holesterol / HDL Ratio 3.63 0.00-4.44 - Ratio * C holesterol 185 <200 - mg/dL * H DL Cholesterol 51 >39 - mg/dL * L DL Cholesterol (Calculation) 113 <130 - mg/d L * L DL/HDL Ratio 2.2 <3.3 - Ratio * N on-HDL Cholesterol 134 H <130 - mg/dL * T riglycerides 105 <150 - mg/dL * Nel Sherman 11/09/2024 11: 57:20 AM EDT > See phone encounter 7.?Obesity, morbid, BMI 40.0-49.9?LAB: P-Comprehensive Metabolic Panel (CMP) (Collection Date & Time - 11/04/2024 08:58 AM)?Normal* Value Reference Range A /G Ratio 1.7 1.1-2.5 - * A lbumin 4.3 3.5-5.3 - g/dL * A lkaline Phosphatase 104 35-121 - IU/L * A LT (SGPT) 29 <5-47 - IU/L * A ST (SGOT) 17 <5-40 - IU/L * B ilirubin, Total 0.3 <0.2-1.2 - mg/dL * B UN 13 6-20 - mg/dL * C alcium 9.5 8.6-10.4 - mg/dL * C hloride 105 97-108 - mmol/L * C O2 24 22-32 - mmol/L * C reatinine 0.83 0.50-1.00 - mg/dL * G lucose 87 65-99 - mg/dL * P otassium 4.4 3.5-5.3 - mmol/L * S odium 141 135-145 - mmol/L * P rotein 6.8 6.0-8.3 - g/dL * e GFR by Creatinine 85 >59 - mL/min/1.73m2 * Nel Sherman 11/09/2024 11: 57:20 AM EDT > See phone encounter ?LAB: CBC Venipuncture (in house) (Collection Date & Time - 11/04/2024)? Normal* Value Reference Range w bc 7.6 3.5 - 10 * l ymph 30.3 15 - 50 * m id 7.4 2 - 15 * g ran 62.3 35 - 80 * r bc 4.70 3.5 - 5.5 * h gb 14.5 11.5 - 16.5 * h ct 43.5 35 - 55 * m cv 92.4 75 - 100 * m ch 30.8 25 - 35 * m chc 33.3 31 - 38 * p latlet 277 100 - 400 * Alesha Chase 11/04/2024 10:3 3:34 AM EDT > Nel Sherman 11/09/2024 11:57:20 AM EDT > See phone encounter * Labs: * L ab: Estimated Average Glucose (Collection Date & Time - 11/04/2024 08:58 AM) N ormal Value Reference Range E stimated Average Glucose 100 - mg/dL * [facility], IT support 11/05/2024 10:50:06 : This order was created by the Interface. Nel Sherman 11/09/2024 11:57:20 AM EDT > See phone encounter * Procedure Codes: 8 5025 CBC WITH AUTO DIFF, 43530 VENIPUNCT, ROUTINE*, 3044F HG A1C LEVEL LT 7.0%, 1036F TOBACCO NON-USER, G8783 BP SCR PRFRM RCMDD DEFIND SCR INTVL, G8752 MOST RECENT SYSTOLIC BP < 140MM HG, G8754 MOST RECENT DIASTOLIC BP < 90MM HG * Follow Up: v ia phone to report test results * Images: Billing Information: * Visit Code: 26411 Office Visit, Est Pt., Level 4. * Procedure Codes: 21319 CBC WITH AUTO DIFF. 25392 VENIPUNCT, ROUTINE*. 3044F HG A1C LEVEL LT 7.0%. 1036F TOBACCO NON-USER. G8783 BP SCR PRFRM RCMDD DEFIND SCR INTVL. G8752 MOST RECENT SYSTOLIC BP < 140MM HG. G8754 MOST RECENT DIASTOLIC BP < 90MM HG. * Electronic signature of JAVED Norwood on 03/21/2025 at 03:23 PM EST Sign off status: Pending * Provider: JAVED Choi Date: 0 11/04/2024 Generated for Cinthia hale/Dayana/eTmikesmitting on: 1 05/21/2024 03:23 PM EST History and Physical Notes * HPI (History of Present Illness) Category Sub-Category Detail Notes Category Not es Hip/Thigh hip pain right HPI Patient is here today for Pt is here today for a 3 month check up. Pt sts she is doing well and has no concerns Examination Category Sub-Category Detail Notes Category Not es General Examination HEENT: unremarkable Heart: RSR Lungs: clear to auscultatio n Abdomen: bowel sounds present , soft and nontender, no organomegaly or masses Extremities: no leg edema, ttp al radha right piriformis area and pain with figure 4 test General Appearance: NAD Skin: normal, no rash Neurologic Exam: Intact, gait normal Neck: supple, no lymphaden opathy Oral cavity: no lesions, mucosa m oist and WNL, no erythema Peripheral pulses: normal (2+) bilatera lly Back: no spinal tenderness Chest: normal shape and exp ansion
--- OUTSIDE RECORDS SUMMARY | 2025-02-01 10:30 | XMS_ITS ---
Author Organization [facility] Address [address] [place] [id number] Care Team Providers Care Lawn Mower Operator Name Role Phone Miguel Carmen Primary Care Provider Rosendo Tilley Unavailable [phone] Allergies Allergen (clinical drug ingredient) Drug/Non Drug [...] 02/01/2025 Encounters Encounter Location Date Provider Diagnosis [facility] [address] [facility] [address] [place], [place] [phone] 02/01/2025 Rosendo Tilley Acute URI J06.9 Assessments [...] Notes * MICHAEL GABRIELdavioneDOB:1970 (54 yo F)Acc No.[id number]:02/01/2025 Progress Notes Patient: MICHAEL CESPEDES Provider: Sienna Tilley M.D. :1970 A ge:54 Y S ex:Female Date:02/01/2025 Address:[address], [place], [id number] Pcp:Miguel Carmen Subjective: * Chief Complaints: * [...] scratchy. * Medical History: Xochilt Robles in [place]. * Surgical History: T hyroidectomy , 06/09/2006. * Hospitalization/Major Diagno stic Procedure: Patrice hernandes on [facility] ER 05/2010. * Family History: F [...] : R RR.? Assessment: * Assessment: Lorri HERRINGI - J06.9 (Primary) Plan: * Treatment: Value [...] Codes: 8 5025 CBC WITH AUTO DIFF, 51025 CAPILLARY BLOOD DRAW, 3074F SYST BP LT 130 MM HG, 3078F DIAST BP < 80 MM HG, 1036F TOBACCO NON-USER * Follow Up: p rn * Images: Billing Information: * Visit Code: 39948 Office Visit, Est Pt., Level 3. * Procedure Codes: 88467 CBC WITH AUTO DIFF. 21971 CAPILLARY BLOOD DRAW. 3074F SYST BP LT 130 MM HG. 3078F DIAST BP < 80 MM HG. 1036F TOBACCO NON-USER. * Electronic signature of Jadyn Tilley MD on 03/21/2025 at 03:23 PM EST Sign off status: Pending * Provider: Sienna Tilley M.D. Date: 0 02/01/2025 Generated for Cinthia hale/Dayana/Ernesto on: 1 05/21/2024 [...]
--- OUTSIDE RECORDS SUMMARY | 2025-03-16 10:45 | XMS_ITS ---
Author Organization [facility] Address [address] [place] [phone] Care Team Providers Care Barrel Finisher Name Role Phone Miguel Carmen Primary Care Provider Michelle Granados [phone] Allergies Allergen (clinical drug ingredient) Drug/Non Drug Allergy documented on EMR Reaction Allergy Type Onset Date Status cefdinir Cefdinir hives Drug Allergy Active methylprednisolone Medrol hives Drug Allergy Active REASON FOR VISIT knot on left thigh [...] dexAMETHasone 4 MG 1 tablet Orally twic a day; Duration: 5 days 11/04/2024 Active [...] 03/16/2025 Encounters Encounter Location Date Provider Diagnosis [facility] [address] [place] [phone] 03/16/2025 Michelle Granados Mass of left thigh R22.42 Assessments Encounter Date Diagnosis (ICD Code) Assessment Notes Treatment Notes Treatment Clinical Notes Section Notes 03/16/2025 Mass of left thigh (ICD-10 - R22.42) Plan Of Treatment Pending Test Test Name Order Date Ultrasound : Thigh lesion, left 03/16/20 Next Appt Details Follow Up: via phone to repo rt test results, Reason: Progress Notes * MICHAEL GABRIEL AshelyeDOB:1970 (54 yo F)Acc No.[id number]:03/16/2025 Progress Notes Patient: MICHAEL CESPEDES Provider: JAVED Choi :1970 A ge:54 Y S ex:Female Date:03/16/2025 Address:[address] [place] [address] [place], [id number] Pcp:Miguel Carmen Subjective: * Chief Complaints: * [...] urine. * Medical History: Xochilt Robles in [place]. * Surgical History: T hyroidectomy , 06/09/2006. * Hospitalization/Major Diagno stic Procedure: F ell on [facility] ER 05/2010. * Family History: F ather: [...] * Images: Billing Information: * Visit Code: 59865 Office Visit, Est Pt., Level 3. * Procedure Codes: * Electronic signature of JAVED Norwood on 03/21/2025 at 03:23 PM EST Sign off status: Pending * Provider: JAVED Choi Date: Generated for Cinthia hale/Dayana/Ernesto on: 05/21/2024 03:23 [...]
--- NOTE | 2025-03-21 | US_ITS ---
FINAL REPORT CLINICAL HISTORY: MASS ON LEFT THIGH FINDINGS: Limited sonographic imaging was obtained of the lateral upper thigh at the area of palpable abnormality. No discrete mass or fluid collection identified. Area of nonspecific heterogeneity in the area of interest, etiology unclear. IMPRESSION: Nonspecific area of heterogeneity. Consider MRI without and with contrast if further evaluation needed. Reviewed, Interpreted and Dictated by Ghazal Menendez MD Transcribed by Alisa Kaminski Authenticated and [facility]
--- OUTSIDE RECORDS SUMMARY | 2025-03-21 01:21 | XMS_ITS | Continuity of Care Document ---
Author Organization [facility] Phone Care Team Providers Care Leather Scrubber Name Role Phone HUSSAIN HERNÁNDEZ Primary Attending [phone] HUSSAIN HERNÁNDEZ Admitting [phone] HUSSAIN HERNÁNDEZ Primary Care HUSSAIN HERNÁNDEZ Unavailable [phone] ALLERGIES AND ADVERSE REACTIONS ALLERGIES AND ADVERSE REACTIONS Code System Allergy Substance Adverse Reaction Date Reaction (Severity) Comment Status Reported By Updated By No Known Allergies [id number] on November 04, 2023 1:02:17 PM [facility] FAMILY HISTORY RELATION: Father Status: LIVING SNOMED-CT Diagnosis Age At Onset [id number] Diabetes mellitus RESULTS Patient: NERY Bell Date of : [birth year] 8 LABORATORY RESULTS Information is not available LABORATORY NARRATIVE RESULTS Information is not available RADIOLOGY RESULTS ORDER 100: REBECA SCRN MAMMO W /CAD BILAT (LOINC: 17016-5) ORDER DATE: March 17, 2025 7:18:00 PM [facility] PERFORMING LAB: [address] [id number] Final Result Date: February 172024 8:13:[address] [address] Name: MICHAEL GABRIEL Exam Date: 03/17/2025 : 1970 Age 54 years Gender: F Physician: HUSSAIN HERNÁNDEZ Facility: [facility] Facility HSV: Outpatient Exam: REBECA SCRN MAMMO W/CAD BILAT Exam: 3-D screening mammography including tomosynthesis and CAD (Computer Assisted Detection). Clinical indication: Asymptomatic screening exam Comparison: Exams to 2021 TECHNIQUE: Routine bilateral 2D screening mammogram with CC and MLO views obtained. 3-D tomosynthesis and Computer assisted detection were utilized for this exam. BREAST DENSITY: There are scattered areas of fibroglandular density FINDINGS: No suspicious mass, architectural distortion, or suspicious calcifications are present. IMPRESSION: No evidence of malignancy in either breast Recommendation: Annual screening mammography recommended in one year The results of this report will be communicated to the patient by letter in layman's terms. ACR BI-RADS: BI-RADS assessment category 1: Negative mammogram Mammography does not detect approximately 10-15% of breast cancers. A normal mammogram does not exclude breast cancer in a patient with palpable mass or abnormal findings on physical examination. These patients may need biopsies and when clinically indicated a biopsy should not be postponed because of a normal mammogram. If the patient has breast surgery or biopsy, FDA/SA Regulatory Guidelines mandate that this facility receive pathologic results for follow-up correlation. Electronically signed by: Abhinav Lorenzana MD 03/17/2025 04:13 PM EDT RP Dictated By: Abhinav Lorenzana Transcribed By: Transcribed On: 03/17/2025 4:13 PM Electronically signed by: Abhinav Lorenzana 03/17/2025 Thank you for referring MICHAEL GABRIEL to [facility]. Legally authenticated by JONY PATRICK 2025-03-17 16:13:44 PATHOLOGY NARRATIVE RESULTS Information is not available MICROBIOLOGY RESULTS No Micro Labs/Results Exist for Patient BLOOD ADMIN RESULTS Information is not available MEDICATIONS HOME MEDICATIONS Status RXNORM NDC Medication Dose Route Frequency Dates Comments Reported By Updated By Drug Treatment Unknown DISCHARGE MEDICATIONS Status RXNORM NDC Medication Dose Route Frequency Dates Dis pense Data Comments Physician Updated By No Discharge Medication Info rmation Available INPATIENT MEDICATIONS Status RXNORM NDC Medication Dose Route Frequency Rat e Quantity Dates Indication Dispense Data Comments Physician Updated By No Inpatient Medication Info rmation Available SOCIAL HISTORY SOCIAL HISTORY - Smoking Status SNOMED-CT Social History Element Description Effective Dates Offered Cessation Comment Updated By [id number] Historical Tobacco smoking status Never Smoked [id number] on November 02, 2023 2:43:59 PM [facility] SOCIAL HISTORY - Gender Sex: Female SOCIAL HISTORY - Status : status i nformation is not available Intention in Next Year: intention information is not available SOCIAL HISTORY - Assessments Code System Description Status Date Value of Assessment Updated By Comment Assessment Information is no t available SOCIAL HISTORY - [place] Affiliation [place] information is not av ailable SOCIAL HISTORY - Legal Sex Legal Sex information is not available SOCIAL HISTORY - Sexual Behavior Sexual Orientation Gender Identity SNOMED-CT Description SNO MED -CT Description Activity Level No of Partners Partner Type UpdatedBy Information is not available SOCIAL HISTORY - Occupation Occupation information is no t available HEALTH CONCERNS Problems Concern Status Health Concern problem infor mation not available. Smoking Status Status Years Used Consumed packs p er day Health Concern smoking histo ry information not available. Family History Concern Status Health Concern family histor y information not available. ENCOUNTERS ENCOUNTER INFORMATION Reason for Visit VISHAL Admission March 17, 2025 7:15:[address] [phone] Discharge March 17, 2025 7:15:00 PM [facility] DISCHARGED TO HOME OR SELF CARE ENCOUNTER DIAGNOSES Notes information is not maged ilable. Code System Diagnosis Onset Date Diagnosis information is not available. ABSTRACT DIAGNOSES Code System Diagnosis Updated By Abatement Date Z12.31 ICD10 ENCOUNTER FOR SC REENING MAMMOGRAM FOR MALIGNANT NEOPLASM OF BREAST [id number] on March 09, 2025 3:43:08 PM [facility] Z12.31 ICD10 ENCOUNTER FOR SC REENING MAMMOGRAM FOR MALIGNANT NEOPLASM OF BREAST [id number] on March 21, 2025 6:21:02 AM [facility] CARE TEAM Care Leather Scrubber Role HUSSAIN HERNÁNDEZ Primary Attending HUSSAIN HERNÁNDEZ Admitting HUSSAIN HERNÁNDEZ Primary Care HUSSAIN HERNÁNDEZ Referring CARE TEAM CARE intake counselor Role on Team Location Telecom Status Start Date End Garo e Updated By EDGAR REDMAN PCP normal March 09, 2025 3:43:08 PM [facility] March 17, 2025 7:15:00 PM [facility] [id number] on March 09, 2025 3:43:08 PM [facility] EDGAR REDMAN Referring normal March 09, 2025 3:43:08 PM [facility] March 17, 2025 7:15:00 PM [facility] [id number] on March 09, 2025 3:43:08 PM [facility] EDGAR REDMAN Attending normal March 09, 2025 3:43:08 PM [facility] March 17, 2025 7:15:00 PM [facility] [id number] on March 09, 2025 3:43:08 PM [facility] EDGAR REDMAN Admitting normal March 09, 2025 3:43:08 PM [facility] March 17, 2025 7:15:00 PM [facility] [id number] on March 09, 2025 3:43:08 PM [facility]
--- OUTSIDE RECORDS SUMMARY | 2025-03-21 15:23 | XMS_ITS | Patient Health Record ---
[facility] Organization [facility] Address [address] [place] [id number] Care Team Providers Care Undercutter Name Role Phone Miguel Carmen Primary Care Provider Rosendo Tilley Unavailable [phone] Alva Stoddard Unavailable [phone] Michelle Granados Unavailable [phone] Allergies Allergen (clinical drug ingredient) Drug/Non Drug [...] Interpretation:neg Performing Lab: Notes/Report: neg Result: neg CBC Venipuncture (in house) Reviewed date:11/09/2024 11:57:26 [...] Interpretation:Normal Performing Lab: Notes/Report: Test performed by [facility] [address] [place] [address] , [address], [place] [address] Toni Jiang MD, Finishing Room Operator CLIA: [id number] Sodium 141 135-145 mmol/L Potassium 4.4 3.5-5.3 [...] Interpretation:Normal Performing Lab: Notes/Report: Test performed by [facility] [address] [place] [address] , [address], [place] [address] Toni Jiang MD, Finishing Room Operator CLIA: [id number] Thyroxine Free (free T4) 0.97 0.86-1.76 ng/dL P-Hemoglobin A1C Reviewed date:11/09/2024 11:57:26 AM Interpretation:Normal Performing Lab: Notes/Report: Test performed by [facility] [address] [place] [address] Ken Diaz, [place] [address] Toni Jiang MD, Finishing Room Operator CLIA: [id number] Hemoglobin A1C 5.1 <5.7 % The following HbA1c ranges recommended by the [place] [employer] (ADA) may be used as an aid in the diagnosis of diabetes mellitus. HbA1c Suggested Diagnosis >=6.5% Diabetic 5.7% - 6.4% Pre-Diabetic <5.7% Non-Diabetic P-Lipid Panel Reviewed date:11/09/2024 11:57:26 AM Interpretation:Normal Performing Lab: Notes/Report: Test performed by [facility] [address] [place] [address] Ken Diaz, [place] [address] Toni Jiang MD, Finishing Room Operator CLIA: [id number] Cholesterol 185 <200 mg/dL Triglycerides 105 <150 [...] Interpretation:Normal Performing Lab: Notes/Report: Test performed by [facility] [address] , [place] [address] Toni Jiang MD, Finishing Room Operator CLIA: [id number] TSH 2.65 0.43-5.25 mU/L P-Vitamin D 25-Hydroxy Reviewed date:11/09/2024 11:57:26 AM Interpretation:39.9 Performing Lab: Notes/Report: Test performed by [facility] [address] , [place] [address] Toni Jiang MD, Finishing Room Operator CLIA: [id number] Vitamin D 25-Hydroxy 39.9 30.0-100.0 ng/mL Interpretation of Vitamin D 25 OH: < 20 ng/mL - Deficiency 20 - 29 ng/mL - Insufficiency 30 - 100 ng/mL - Sufficiency > 100 ng/mL - Super-therapeutic- toxicity may occur above this level. Clinical correlation required. Estimated Average Glucose Reviewed date:11/09/2024 11:57:26 AM Interpretation:Normal Performing Lab: Notes/Report: Test performed by [facility] [address] [place] [address] , [place] [address] Toni Jiang MD, Finishing Room Operator CLIA: [id number] Estimated Average Glucose (eAG) 100 Estimated Average Glucose (eAG) is calculated using the equation eAG = (28.7 x HbA1c) - 46.7 based on the guidelines established by the ADA. If the patient has certain diseases including kidney disease, sickle cell anemia, thalassemia, or is taking medications such as dapsone, erythropoietin, or iron, eAG should not be evaluated. CBC Fingerstick (in house) Reviewed date:02/01/2025 06:33:22 [...] - 38 plat 251 100 - 400 Medications Medication SIG (Take, Route, Frequency, Duration) Notes Start Date End Date Status Meloxicam 15 MG TAKE 1 TABLET BY JOSE TH ONCE DAILY WITH FOOD; Duration: 90 Active Wegovy 2.4 MG/0.75ML 0.75 mL Subcutaneou s once a week; Duration: 30 days Active Cyclobenzaprine HCl 5 MG 1 tab Orally 3 times a day, prn 11/04/2024 Active dexAMETHasone 4 MG 1 tablet Orally twic e a day; Duration: 5 days 11/04/2024 Active Venlafaxine HCl ER 75 MG 1 capsule with food Orally Once a day; Duration: 90 days Active Levothyroxine Sodium 25 MCG 1 tab(s) ora lly once a day; Duration: 30 day(s) Active Vitamin D3 50 MCG (1999 UT) as directed orally once a day; Duration: 30 day(s) 11/15/2020 Active Immunizations Vaccine Route Administration Date Status Comme nts Tetanus Tdap-Adacel (over 7yrs) IM Intramuscular 07/21/2018 Administered Hepatitis B (20 and more) Unknown 04/26/2007 Administer ed Hepatitis B (20 and more) Unknown 06/10/2007 Administer ed Hepatitis B (20 and more) Unknown 10/12/2007 Administer ed Hepatitis A (adult) Unknown 09/30/2018 Administered Fluzone Quad (6months&older) Unknown 03/21/2019 Administered Flublok IM Intramuscular 02/21/2020 Administered COVID 19 Moderna Unknown 06/06/2020 Administered COVID 19 Moderna Unknown 07/06/2020 Administered COVID 19 Moderna Unknown 03/22/2021 Administered Problems Problem Type SNOMED Code ICD Code Onset Dates Problem Status W/U Status Risk Notes Problem Sinusitis (91571696) Sinusitis (J32.9) Active confirmed Problem Hypothyroidism (84891814) Hypothyroidism (acquired) (E03.9) Active confirmed Problem Vitamin D deficiency (94134974) Vitamin D deficiency (E55.9) Active confirmed Problem Sciatic nerve lesion (829010043) Piriformis syndrome of right side (G57.01) Active confirmed Problem Mixed anxiety and depressive disorder (339878611) Depression with anxiety (F41.8) Active confirmed Problem Morbid obesity (disorder) (613994970) Morbid (severe) obesity due to excess calories (E66.01) Active confirmed Problem Acquired hypothyroidism (815150027) Acquired hypothyroidism (E03.9) Active confirmed Problem Polyarthritis (433766258) Polyarthritis (M13.0) Active confirmed Problem Body mass index 40+ - morbidly obese (630514063) BMI 40.0-44.9, adult (Z68.41) Active confirmed Problem Morbid obesity (523588642) Obesity, morbid, BMI 40.0-49.9 (E66.01) Active confirmed Problem Twitching eye (finding) (893048516) Eye muscle twitches (R25.3) Active confirmed Problem Body mass index 40+ - severely obese (607194675) Body mass index [BMI] 40.0-44.9, adult (Z68.41) Active confirmed Vital Signs Heart Rate 91 /min 03/16/2025 Blood pressure diastolic 80 mm Hg 03/16/2025 Height 65 in 03/16/2025 Blood pressure systolic 122 mm Hg 03/16/2025 Weight 235 lbs 03/16/2025 BMI 39.1 kg/m2 03/16/2025 Encounters Encounter Location Date Provider Diagnosis [facility] [facility] [address] [place] [id number] 04/25/2024 Alva Stoddard Sinusitis J32.9 [facility] [facility] 36 [facility] [address] [place], [place] [id number] 08/05/2024 Michelle Granados BMI 40.0-44.9, adult Z68.41 and Encounter for weight management Z76.89 [facility] [facility] [address] [place], [place] [id number] 11/04/2024 Michelle Granados Encounter for weight management Z76.89 ; Piriformis syndrome of right side G57.01 ; Hypothyroidism (acquired) E03.9 ; Vitamin D deficiency E55.9 ; Screening for diabetes mellitus Z13.1 ; Polyarthritis M13.0 ; Screening, lipid Z13.220 ; Depression with anxiety F41.8 and Obesity, morbid, BMI 40.0-49.9 E66.01 [facility] [address] [place], [place] [id number] 02/01/2025 Rosendo [place] Acute URI J06.9 [facility] [address] [place], [place] [id number] 03/16/2025 Michelle Crowdy Mass of left thigh R22.42 [facility] [address] [place], [place] [id number] 03/31/2024 R Jairo Nella [facility] [address] [place] [id number] 04/27/2024 R Jairo Nella [facility] [address] [place] [id number] 07/29/2024 Michelle Crowdy [facility] [address] [place], [place] [id number] 11/09/2024 Michelle Crowdy [facility] [address] [place], [place] [id number] 12/12/2024 R Jairo Nella Encounter for weight management Z76.89 [facility] [address] [place], [place] [id number] 02/20/2025 R Jairo Nella Assessments Encounter Date Diagnosis (ICD Code) Assessment Notes Treatment Notes Treatment Clinical Notes Section Notes 04/25/2024 Sinusitis (ICD-10 - J32.9) fluids, rest, supportive measures for fever/symptom relief, fluids, rest, supportive measures for fever/symptom relief 08/05/2024 BMI 40.0-44.9, adult (ICD-10 - Z68.41) Patient is doing well on wegovy. Her BMI has dropped to 39 and her weight is down. She would benefit from continuing on the medication. 08/05/2024 Encounter for weight management (ICD-10 - Z76.89) 11/04/2024 Piriformis syndrome of right side (ICD-10 - G57.01) Gave exercises to do at home. 11/04/2024 Encounter for weight management (ICD-10 - Z76.89) 12/12/2024 Encounter for weight management (ICD-10 - Z76.89) 02/01/2025 Acute URI (ICD-10 - J06.9) 03/16/2025 Mass of left thigh (ICD-10 - R22.42) 11/04/2024 Hypothyroidism (acquired) (ICD-10 - E03.9) 11/04/2024 Vitamin D deficiency (ICD-10 - E55.9) 11/04/2024 Screening for diabetes mellitus (ICD-10 - Z13.1) 11/04/2024 Polyarthritis (ICD-10 - M13.0) 11/04/2024 Screening, lipid (ICD-10 - Z13.220) 11/04/2024 Depression with anxiety (ICD-10 - F41.8) 11/04/2024 Obesity, morbid, BMI 40.0-49.9 (ICD-10 - E66.01) Plan Of Treatment Pending Test Test Name Order Date Mammogram 02/28/2025 Ultrasound : Thigh lesion, left 03/16/20 25 Insurance Providers Payer Name Payer Address Payer Phone Subscriber Number Group Number Insured Name Patient Relationship to Insured Coverage Start Date Coverage End Date [employer] [address] [place] [address] [id number] MICHAEL GABRIEL Self - patient is the insured Medical (General) History Medical History History ICD Code COMBINATION PRESSER - Dr. Robles in [place] Surgical History Surgery Date(Month/Year) Thyroidectomy 06/09/2006 Hospitalization History Reason Date(Month/Year) Fell on [facility] ER 05/2010
== END 2025-03-21 23:59 | disposition home or self-care (01) ==
LOC: RAD 15:18
PROVIDERS: PCP Physician Assistant; Visit Provider Physician Assistant
DX: R22.42 Localized swelling, mass and lump, left lower limb (principal)
CPT/HCPCS: 76882

== ENCOUNTER 2025-03-30 15:23 | Outpatient (CLI) | payer BC, SELFPAY ==
--- OUTSIDE RECORDS SUMMARY | 2024-01-08 05:45 | XMS_ITS ---
Author Organization [facility] Address [address] [place] [id number] Care Team Providers Care Sem Manager Name Role Phone Miguel Carmen Primary Care Provider Michelle Granados [phone] Allergies Allergen (clinical drug ingredient) Drug/Non Drug Allergy documented on EMR Reaction Allergy Type Onset Date Status cefdinir Cefdinir hives Drug Allergy Active methylprednisolone Medrol hives Drug Allergy Active Results Component Value Reference Range Notes Glycohemoglobin A1c (in hous e) Reviewed date:01/12/2024 08:52:04 PM Interpretation:5.2 Performing Lab: Notes/Report: 5.2 glycohemoglobin 5.2% 5 - 6.5 % P-Arthritis Panel, [facility] Reviewed date:01/12/2024 08:52:04 PM Interpretation:crp 0.92 Performing Lab: Notes/Report: CLIA: [id number] Toni Jiang MD, Butter Melter [facility] [facility] , [address], [place] [address] Test performed by [facility], [facility] Erythrocyte Sedimentation Ra te (ESR), Automated 20 <31 mm/hr Rheumatoid Factor <10 <14.1 IU/mL C-Reactive Protein (CRP) 0.92 <0.50 mg/dL Antinuclear Antibodies (TYRESE) Screen, Reflex TYRESE 9 Panel Negative Negative Test performe d by Multiplex Bead Immunoassay methodology. Antinuclear Antibodies (TYRESE) Result Note SEE COMMENT For positive Autoantibodies, please refer to the interpretive chart here: [email or web address]/[email or web address] CCP Antibodies <0.5 <0.5-3.0 U/mL P-T4 Free (thyroxine) Reviewed date:01/12/2024 08:52:04 PM Interpretation:Normal Performing Lab: Notes/Report: Test performed by [facility] [address] [place] [address] , [address], [place] [address] Toni Jiang MD, Butter Melter CLIA: [id number] Thyroxine Free (free T4) 0.86 0.86-1.76 ng/dL P-TSH Reviewed date:01/12/2024 08:52:04 PM Interpretation:Normal Performing Lab: Notes/Report: Test performed by [facility] [address] [place] [address] , [address], [place] [address] Toni Jiang MD, Butter Melter CLIA: [id number] TSH 3.13 0.43-5.25 mU/L P-Vitamin D 25-Hydroxy Reviewed date:01/12/2024 08:52:04 PM Interpretation:40.5 Performing Lab: Notes/Report: Test performed by [facility] [address] [place] [address] , [address], [place] [address] Toni Jiang MD, Butter Melter CLIA: [id number] Vitamin D 25-Hydroxy 40.5 30.0-100.0 ng/mL Interpretation of Vitamin D 25 OH: < 20 ng/mL - Deficiency 20 - 29 ng/mL - Insufficiency 30 - 100 ng/mL - Sufficiency > 100 ng/mL - Super-therapeutic- toxicity may occur above this level. Clinical correlation required. Reason For Referral Diagnosis 1 Plantar fasciitis, l eft (M72.2) Referral Organization [facility] Referring Provider First Name Michelle Referring Provider Last Name Roberta Referring Provider Speciality Physician Machined Parts Quality Inspector Referred Provider PODIATRY, . Referred Provider Specialty Podiatry General Notes Michelle Granados 01/07 1:07:11 PM > Will need appt with Aurora Bundy Brynn 01/08/2024 1:10:32 PM > faxed to [facility] Podiatry Referral Priority Routine REASON FOR VISIT plantar fascitis, discuss labs for thryoid check, discuss weight Medications Medication SIG (Take, Route, Frequency, Duration) Notes Start Date End Date Status Levothyroxine Sodium 25 MCG 1 tab(s) ora lly once a day; Duration: 30 day(s) Active Wegovy 0.25 MG/0.5ML 0.25 mg Subcutaneou s once a week 01/08/2024 Active Venlafaxine HCl ER 75 MG 1 cap(s) orally once a day; Duration: 90 days Active Meloxicam 15 MG 1 tablet Orally Once a day 01/08/2024 Active Vitamin D3 50 MCG (1999 PA) as directed orally once a day; Duration: 30 day(s) 11/15/2020 Active Problems Problem Type SNOMED Code ICD Code Onset Dates Problem Status W/U Status Risk Notes Problem Morbid obesity (238708274) Obesity, morbid, BMI 40.0-49.9 (E66.01) Active confirmed Vital Signs Blood pressure systolic 160 mm Hg 01/08/20 24 Blood pressure diastolic 80 mm Hg 024 Heart Rate 80 /min 01/08/2024 Height 65 in 01/08/2024 Weight 258.4 lbs 01/08/2024 BMI 43.00 kg/m2 01/08/2024 Encounters Encounter Location Date Provider Diagnosis [facility] [address] [facility] [address] [place] [id number] 01/08/2024 Michelle Roberta Plantar fasciitis, l eft M72.2 ; Polyarthritis M13.0 ; Vitamin D deficiency E55.9 ; Obesity, morbid, BMI 40.0-49.9 E66.01 ; Elevated glucose R73.09 and Hypothyroidism (acquired) E03.9 Assessments Encounter Date Diagnosis (ICD Code) Assessment Notes Treatment Notes Treatment Clinical Notes Section Notes 01/08/2024 Plantar fasciitis, left (ICD-10 - M72.2) Ice, Powerstep insoles, exercises. 01/08/2024 Polyarthritis (ICD-10 - M13.0) 01/08/2024 Vitamin D deficiency (ICD-10 - E55.9) 01/08/2024 Obesity, morbid, BMI 40.0-49.9 (ICD-10 - E66.01) 01/08/2024 Elevated glucose (ICD-10 - R73.09) 01/08/2024 Hypothyroidism (acquired) (ICD-10 - E03.9) Plan Of Treatment Medication Medication Name Sig Start Date Stop Date Notes Wegovy 0.25 MG/0.5ML 0.25 mg Subcutaneous once a week 12/17 Meloxicam 15 MG 1 tablet Orally Once a day 01/08/2024 Treatment Notes Assessment Notes Plantar fasciitis, left Ice, Powerstep i nsoles, exercises. Referrals Referral Date Details 01/08/2024 01/08/2024, . PODIAT RY Next Appt Details Follow Up: via phone to repo rt test results, Reason: Progress Notes * MICHAEL GABRIELeDOB:1970 (54 yo F)Acc No.[id number]:01/08/2024 Progress Notes Patient: MICHAEL CESPEDES Provider: JAVED Choi :1970 A ge:53 Y S ex:Female Date:01/08/2024 Address:[address] [place] [address] , [facility], [id number] Pcp:Miguel Carmen Subjective: * Chief Complaints: * 1 . Plantar fascitis, discuss labs for thryoid check, discuss weight. * HPI: A nkle/Foot: PT c/o of pain in the left foot. PT states she has had plantar fascitits in the past. PT would to discuss weight gain. G YN: PT states she has been having hot flashes for over a year. PT also c/o of pain in multiple joints. c/o hot flashes. * ROS: D ERMATOLOGY: no R gino. n o H nataly. G ASTROENTEROLOGY: no N ausea. n o V omiting. n o D iarrhea.? U ROLOGY: no D ifficulty urinating. n o B lood in urine. * Medical History: Xochilt DYER - Dr. Robles in [place]. * Surgical History: T hyroidectomy , 06/09/2006. * Hospitalization/Major Diagno stic Procedure: F ell on [facility] ER 05/2010. * Family History: F ather: alive. M other: alive. P aternal Grand Father: . P aternal Grand Mother: alive. M aternal Grand Father: alive. M aternal Grand Mother: alive. 1 brother(s) . 1 son(s) , 1 daughter(s) - healthy. . * Social History: C URRENT TOBACCO USE S moking Status: Patient does NOT smoke. C affeine: yes, frequency:daily. Exercise: yes. Home smoke detector use: yes. Marital Status: . New since last visit: none. Occupation: yes. Past smoking status: no. Occup. exposure: none. Recreational drug use: no. Alcohol: no. Sexually active: yes. Travel ouside [place]: no. * Medications: T aking Vitamin D3 50 MCG (2000 UT) Tablet as directed orally once a day , Taking Venlafaxine HCl ER 75 MG Capsule Extended Release 24 Hour 1 cap(s) orally once a day , Taking Levothyroxine Sodium 25 MCG Tablet 1 tab(s) orally once a day , Discontinued Zithromax Z-Anshu 250 MG Tablet as directed Orally , Discontinued Zithromax Z-Anshu 250 MG Tablet as directed Orally , Discontinued Rxvgnyytb-Fpwsrubz-YY 30-2-10 MG/5ML Syrup 5-10 ml orally 4 times a day, prn , Discontinued Saxenda 18 MG/3ML Solution Pen-injector 3 mg subcutaneously once a day , Medication List reviewed and reconciled with the patient * Allergies: C efdinir: hives, Medrol: hives. Objective: * Vitals: W t:258.4, Temp:97.8, BP:160/80, HR:80, Nurse:, Ht: 65, Repeat BP:120/82, BMI:43.00. * Examination: G eneral Examination: General Appearance: N AD. H EENT: u nremarkable.?Oral cavity: n o lesions, mucosa moist and WNL, no erythema. N riasa: s upple, no lymphadenopathy. C hest: n ormal shape and expansion. H eart: R SR. L ungs: c lear to auscultation. A bdomen: bowel sounds present, soft and nontender, no organomegaly or masses, no guarding or rigidity. N eurologic Exam: I ntact, gait normal. S kin: n ormal, no rash. P eripheral pulses: n ormal (2+) bilaterally. E xtremities: n o leg edema, left foot with ttp at the insertion of the calcaneous. Assessment: * Assessment: 1. P lantar fasciitis, left - M72.2 (Primary) 2 . P olyarthritis - M13.0? 3. V itamin D deficiency - E55.9 4 . O besity, morbid, BMI 40.0-49.9 - E66.01 5 . E levated glucose - R73.09 6 . H ypothyroidism (acquired) - E03.9 Plan: * Treatment: 2. P olyarthritis Start Meloxicam Tablet, 15 MG, 1 tablet, Orally, Once a day, 30, Refills 0. L AB: P-Arthritis Panel, [facility] (Collection Date & Time - 01/08/2024 10:37 AM) c rp 0.92 Value Reference Range A ntinuclear Antibodies (TYRESE) Result Note SEE COMMENT - * A ntinuclear Antibodies (TYRESE) Screen, Reflex TYRESE 9 Panel Negative Negative - * C CP Antibodies <0.5 <0.5-3.0 - U/mL * C -Reactive Protein (CRP) 0.92 H <0.50 - mg/dL * E rythrocyte Sedimentation Rate (ESR), Automated 20 <31 - mm/hr * R heumatoid Factor <10 <14.1 - IU/mL * Michelle Granados 01/12/2024 8: 51:51 PM > discussed with patient 3.?Vitamin D deficiency?LAB: P-Vitamin D 25-Hydroxy (Collection Date & Time - 01/08/2024 10:37 AM)? 40.5* Value Reference Range V itamin D 25-Hydroxy 40.5 30.0-100.0 - ng/mL * Michelle Granados 01/12/2024 8: 51:51 PM > discussed with patient 4.?Obesity, morbid, BMI 40.0-49.9? Start Wegovy Solution Auto-injector, 0.25 MG/0.5ML, 0.25 mg, Subcutaneous, once a week, 4, Refills 0.??5.?Elevated glucose?LAB: Glycohemoglobin A1c (in house) (Collection Date & Time - 01/08/2024)? 5.2* Value Reference Range g lycohemoglobin 5.2% 5 - 6.5 % * Starla Torrez 01/08/2024 3:35:27 PM > Michelle Granados 01/12/2024 8:51:51 PM > discussed with patient 6.?Hypothyroidism (acquired)?LAB: P-T4 Free (thyroxine) (Collection Date & Time - 01/08/2024 10:37 AM)? Normal* Value Reference Range T hyroxine Free (free T4) 0.86 0.86-1.76 - ng/d L * RobertaMichelle Chrissy 01/12/2024 8: 51:51 PM > discussed with patient ?LAB: P-TSH (Collection Date & Time - 01/08/2024 10:37 AM)?Normal* Value Reference Range T SH 3.13 0.43-5.25 - mU/L * RobertaMichelle Lowe 01/12/2024 8: 51:51 PM > discussed with patient * Procedure Codes: 3 6416 CAPILLARY BLOOD DRAW, [address] GLYCATED HEMOGLOBIN TEST, Modifiers: QW * Follow Up: v ia phone to report test results * Images: Billing Information: * Visit Code: 35825 Office Visit, Est Pt., Level 4. * Procedure Codes: 48314 CAPILLARY BLOOD DRAW. 66079 GLYCATED HEMOGLOBIN TEST. 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 Examination Category Sub-Category Detail Notes Category Not es General Examination HEENT: unremarkable Heart: RSR Lungs: clear to auscultatio n Abdomen: bowel sounds present , soft and nontender, no organomegaly or masses, no guarding or rigidity Extremities: no leg edema, left f oot with ttp at the insertion of the calcaneous General Appearance: NAD Skin: normal, no rash Neurologic Exam: Intact, gait normal Neck: supple, no lymphaden opathy Oral cavity: no lesions, mucosa m oist and WNL, no erythema Peripheral pulses: normal (2+) bilatera lly Chest: normal shape and exp ansion Consultation Request Notes Referral Date Referring Provider Referred Provider Not es 01/08/2024 Michelle Granados PODIATRY, .
--- OUTSIDE RECORDS SUMMARY | 2024-04-25 09:45 | XMS_ITS ---
Author Organization [facility] Address [address] [place] [id number] Care Team Providers Care Airbrush Artist Name Role Phone Miguel Carmen Primary Care Provider Alva Stoddard [phone] Allergies Allergen (clinical drug ingredient) Drug/Non Drug [...] 04/25/2024 Encounters Encounter Location Date Provider Diagnosis [facility] [address], [place] [id number] 04/25/2024 Alva Stoddard Sinusitis J32 .9 Assessments [...] Notes * MICHAEL GABRIELOB:1970 (54 yo F)Acc No.[id number]:04/25/2024 Progress Notes Patient: MICHAEL CESPEDESkie Provider: RANDELL Ritter :1970 A ge:53 Y S ex:Female Date:04/25/2024 Address:[facility] [address], [place], [id number] Pcp:Miguel Carmen Subjective: * Chief Complaints: * [...] urine. * Medical History: Xochilt Robles in [place]. * Surgical History: T hyroidectomy , 06/09/2006. * Hospitalization/Major Diagno stic Procedure: Patrice hernandes on [facility] ER 05/2010. * Family History: F ather: [...] * Vitals: W t:246.0, Temp:98.3, BP:116/80, HR:78, Nurse:[facility], Ht: 65, BMI:40.93. * Examination: E NT/Respiratory: [...] > Provider reviewed results while patient in office.Stoddard,Alva 04/25/2024 7:46:12 PM > * Procedure Codes: 3 6416 CAPILLARY BLOOD DRAW, 14948 CBC WITH AUTO DIFF, 20494 Flu Test- Nasal Swab, Modifiers: QW , 47734 COVID TEST IN HOUSE, Modifiers: QW * Follow Up: p rn * Images: Billing Information: * Visit Code: 80399 Office Visit, Est Pt., Level 3. * Procedure Codes: 67741 CAPILLARY BLOOD DRAW. 98977 CBC WITH AUTO DIFF. 84501 Flu Test- Nasal Swab. Modifiers: QW 93564 COVID TEST IN HOUSE. Modifiers: QW * Electronic signature of Brittni ha Arlyn , JACOB on 03/30/2025 at 03:26 PM EST Sign off status: Pending * Provider: RANDELL Ritter Date: 06/26/2023 Generated for Cinthia hale/Dayana/Ernesto on: 05/30/2024 03:26 PM EST History and Physical Notes * [...]
--- OUTSIDE RECORDS SUMMARY | 2024-08-05 06:15 | XMS_ITS ---
Author Organization [facility] Address [address] [place] [id number] Care Team Providers Care Mechatronics Technician Name Role Phone Miguel Carmen Primary Care Provider [phone] Michelle Granados [phone] Allergies Allergen (clinical drug ingredient) Drug/Non Drug [...] Body mass index 40+ - morbidly obese ([id number]) BMI 40.0-44.9, adult (Z68.41) Active confirmed Vital Signs Blood pressure systolic 120 mm Hg 08/06/19 25 Blood pressure diastolic 80 mm Hg 025 Heart Rate 90 /min 08/05/2024 Height 65 in 08/05/2024 Weight 234.6 lbs 08/05/2024 BMI 39.04 kg/m2 08/05/2024 Encounters Encounter Location Date Provider Diagnosis [facility] [address] [place] [id number] 08/05/2024 Michelle Granados BMI 40.0-44.9, adult Z68.41 [...] * MICHAEL GABRIEL AshelyeDOB:1970 (54 yo F)Acc No.[id number]:08/05/2024 Progress Notes Patient: MICHAEL CESPEDES Provider: JAVED Choi :1970 A ge:54 Y S ex:Female Date:08/05/2024 Address:[address], [place], [id number] Pcp:Miguel Carmen Subjective: * Chief Complaints: * [...] urine. * Medical History: Xochilt Robles in [place]. * Surgical History: T hyroidectomy , 06/09/2006. * Hospitalization/Major Diagno stic Procedure: Patrice hernandes on Arm- [facility] ER 05/2010. * Family History: F [...] management - Z76.89 (Primary) 2 . B GA 40.0-44.9, adult - Z68.41 Plan: * Treatment: * Procedure Codes: 3 074F SYST BP LT 130 MM HG, 3079F DIAST BP 80-89 MM HG * Follow Up: 3 Months * Images: Billing Information: * Visit Code: 26823 Office Visit, Est Pt., Level 3. * Procedure Codes: 3074F SYST BP LT 130 MM HG. 3079F DIAST BP 80-89 MM HG. * Electronic signature of JAVED Norwood on 03/30/2025 at 03:26 PM EST Sign off status: Pending * Provider: JAVED Choi Date: 0 08/05/2024 Generated for Cinthia hale/Dayana/Kellieitting on: 1 05/30/2024 03:26 PM EST History and Physical [...]
--- OUTSIDE RECORDS SUMMARY | 2024-11-04 04:15 | XMS_ITS ---
Author Organization [facility] Address [address] [place] [id number] Care Team Providers Care Grinder Gear Name Role Phone Miguel Carmen Primary Care Provider Michelle Granados Unavailable [phone] Allergies Allergen (clinical drug ingredient) Drug/Non Drug [...] Interpretation:Normal Performing Lab: Notes/Report: Test performed by [employer], [employer] [address] [place] [address] , [address], [place] [address] Toni Jiang MD, Lead Manufacturing Engineer CLIA: [id number] Sodium 141 135-145 mmol/L Potassium 4.4 3.5-5.3 [...] Interpretation:Normal Performing Lab: Notes/Report: Test performed by [facility] [address] [place] [address] , [place] [address] Toni Jiang MD, Lead Manufacturing Engineer CLIA: [id number] Thyroxine Free (free T4) 0.97 0.86-1.76 ng/dL P-Hemoglobin A1C Reviewed date:11/09/2024 11:57:26 AM Interpretation:Normal Performing Lab: Notes/Report: Test performed by [facility] [address] [place] [address] , [address], [place] [address] Toni Jiang MD, Lead Manufacturing Engineer CLIA: [id number] Hemoglobin A1C 5.1 <5.7 % The following HbA1c ranges recommended by the [place] Diabetes Association (ADA) may be used as an aid in the diagnosis of diabetes mellitus. HbA1c Suggested Diagnosis >=6.5% Diabetic 5.7% - 6.4% Pre-Diabetic <5.7% Non-Diabetic P-Lipid Panel Reviewed date:11/09/2024 11:57:26 AM Interpretation:Normal Performing Lab: Notes/Report: Test performed by [facility] [address] [place], [place] [address] Wellington Diaz, [place] [address] Toni Jiang MD, Lead Manufacturing Engineer CLIA: [id number] Cholesterol 185 <200 mg/dL Triglycerides 105 <150 [...] Interpretation:Normal Performing Lab: Notes/Report: Test performed by [facility] [address] [place] [address] [place] [address] Toni Jiang MD, Lead Manufacturing Engineer CLIA: [id number] TSH 2.65 0.43-5.25 mU/L P-Vitamin D 25-Hydroxy Reviewed date:11/09/2024 11:57:26 AM Interpretation:39.9 Performing Lab: Notes/Report: Test performed by [facility] [address] [place] [address] [place] [address] Toni Jiang MD, Lead Manufacturing Engineer CLIA: [id number] Vitamin D 25-Hydroxy 39.9 30.0-100.0 ng/mL Interpretation of Vitamin D 25 OH: < 20 ng/mL - Deficiency 20 - 29 ng/mL - Insufficiency 30 - 100 ng/mL - Sufficiency > 100 ng/mL - Super-therapeutic- toxicity may occur above this level. Clinical correlation required. Estimated Average Glucose Reviewed date:11/09/2024 11:57:26 AM Interpretation:Normal Performing Lab: Notes/Report: Test performed by [facility] [address] , [address], [place] [address] Toni Jiang MD, Lead Manufacturing Engineer CLIA: [id number] Estimated Average Glucose (eAG) 100 Estimated Average [...] Status Risk Notes Problem Sciatic nerve lesion (423204676) Piriformis syndrome of right side (G57.01) Active confirmed Vital Signs Blood pressure systolic 120 mm Hg 11/05/19 Blood pressure diastolic 80 mm Hg 025 Heart Rate 90 /min 11/04/2024 Height 65 in 11/04/2024 Weight 231.6 lbs 11/04/2024 BMI 38.54 kg/m2 11/04/2024 Encounters Encounter Location Date Provider Diagnosis [facility] [address] [facility] [address] [place], [place] [id number] 11/04/2024 Michelle Granados Encounter for weight management [...] Notes * MICHAEL GABRIELeDOB:1970 (54 yo F)Acc No.[id number]:11/04/2024 Progress Notes Patient: MICHAEL CESPEDES Provider: JAVED Choi :1970 A ge:54 Y S ex:Female Date:11/04/2024 Address:[address] [place] [address] , [place], [id number] Pcp:Miguel Carmen Subjective: * Chief Complaints: * [...] B lood in urine. * Medical History: Xochitl Robles in [place]. * Surgical History: T hyroidectomy , 06/09/2006. * Hospitalization/Major Diagno stic Procedure: F ell on [facility] ER 05/2010. * Family History: F ather: [...] stimated Average Glucose 100 - mg/dL * [facility], IT support 11/05/2024 10:50:06 : This order was created by the Interface. Nel Sherman 11/09/2024 11:57:20 AM EDT > See phone encounter * Procedure Codes: 8 5025 CBC WITH AUTO DIFF, 64367 VENIPUNCT, ROUTINE*, 3044F HG A1C LEVEL LT 7.0%, 1036F TOBACCO NON-USER, G8783 BP SCR PRFRM RCMDD DEFIND SCR INTVL, G8752 MOST RECENT SYSTOLIC BP < 140MM HG, G8754 MOST RECENT DIASTOLIC BP < 90MM HG * Follow Up: v ia phone to report test results * Images: Billing Information: * Visit Code: 37382 Office Visit, Est Pt., Level 4. * Procedure Codes: 97201 CBC WITH AUTO DIFF. 08696 VENIPUNCT, ROUTINE*. 3044F HG A1C LEVEL LT [...] 11/04/2024 Generated for Cinthia hale/Dayana/eTmikesmitting on: 1 05/30/2024 03:26 PM EST History [...]
--- OUTSIDE RECORDS SUMMARY | 2025-02-01 10:30 | XMS_ITS ---
Author Organization [facility] Address [address] [place] [id number] Care Team Providers Care Crystal Report Developer Name Role Phone Miguel Carmen Primary Care Provider Rosendo Tilley Unavailable [phone] Allergies Allergen (clinical drug ingredient) Drug/Non Drug Allergy documented on EMR Reaction Allergy Type Onset Date Status cefdinir Cefdinir hives Drug Allergy Active methylprednisolone Medrol hives Drug Allergy Active Results Component Value Reference Range Notes CBC Fingerstick (in house) Reviewed date:02/01/2025 06:33:22 PM Interpretation: Performing Lab: Notes/Report: wbc 9.7 3.5 - 10 lym 29.3% 15 - 50 mid 6.9% 2 - 15 gran 63.8% 35 - 80 rbc 4.63 3.5 - 5.5 hgb 14.4 11.5 - 16.5 hct 42.5 35 - 55 mcv 91.9 75 - 100 mch 31.1 25 - 35 mchc 33.9 31 - 38 plat 251 100 - 400 REASON FOR VISIT possible sinus infection Medications Medication SIG (Take, Route, Frequency, Duration) Notes Start Date End Date Status Meloxicam 15 MG TAKE 1 TABLET BY ONCE DAILY WITH FOOD; Duration: 90 Active Wegovy 2.4 MG/0.75ML 0.75 mL Subcutaneou s once a week; Duration: 30 days Active Zithromax Z-Anshu 250 MG as directed Orall y daily; Duration: 5 days 02/01/2025 Active Venlafaxine HCl ER 75 MG TAKE 1 CAPSULE BY MOUTH ONCE DAILY; Duration: 90 Active Cyclobenzaprine HCl 5 MG 1 tab Orally 3 times a day, prn 11/04/2024 Active Vitamin D3 50 MCG (1999 UT) as directed orally once a day; Duration: 30 day(s) 11/15/2020 Active dexAMETHasone 4 MG 1 tablet Orally twic e a day; Duration: 5 days 11/04/2024 Active Levothyroxine Sodium 25 MCG 1 tab(s) ora lly once a day; Duration: 30 day(s) Active Vital Signs Blood pressure systolic 120 mm Hg 02/02/20 25 Blood pressure diastolic 78 mm Hg 025 Heart Rate 98 /min 02/01/2025 Height 65 in 02/01/2025 Weight 233.0 lbs 02/01/2025 BMI 38.77 kg/m2 02/01/2025 Encounters Encounter Location Date Provider Diagnosis [facility] [address] [facility] [address] [place], [place] [id number] 02/01/2025 Rosendo Tilley Acute URI J06.9 Assessments Encounter Date Diagnosis (ICD Code) Assessment Notes Treatment Notes Treatment Clinical Notes Section Notes 02/01/2025 Acute URI (ICD-10 - J06.9) Plan Of Treatment Medication Medication Name Sig Start Date Stop Date Notes Zithromax Z-Anshu 250 MG as directed Orall y daily; Duration: 5 days 02/01/2025 Next Appt Details Follow Up: prn, Reason: Progress Notes * MICHAEL GABRIELdavioneDOB:1970 (54 yo F)Acc No.[id number]:02/01/2025 Progress Notes Patient: MICHAEL CESPEDES Provider: Sienna Tilley M.D. :1970 A ge:54 Y S ex:Female Date:02/01/2025 Address:[address], [place], [id number] Pcp:Miguel Carmen Subjective: * Chief Complaints: * 1 . Possible sinus infection. * HPI: E NT/respiratory: 54 year old female presents with c/o cough P t states on 01/26 she had clear nasal drainage. Pt states she has a wet cough and clear sputum is coming up. . c/o nasal congestion c lear drainage, sneezing but not a lot. c/o headache P t states she wakes up with a headache and take medicine and will get another later in the afternoon, both sinuses. sore throat P t states her throat has felt scratchy. * Medical History: Xochilt Robles in [place]. * Surgical History: T hyroidectomy , 06/09/2006. * Hospitalization/Major Diagno stic Procedure: Patrice hernandes on [facility] ER 05/2010. * Family History: F ather: alive. M other: alive. P aternal Grand Father: . P aternal Grand Mother: alive. M aternal Grand Father: alive. M aternal Grand Mother: alive. 1 brother(s) . 1 son(s) , 1 daughter(s) - healthy. . * Social History: C URRENT TOBACCO USE: No S moking Status: Patient does NOT smoke. [...] directed orally once a day , Taking Levothyroxine Sodium 25 MCG Tablet 1 tab(s) orally once a day , Taking dexAMETHasone 4 MG Tablet 1 tablet Orally twice a day , Taking Cyclobenzaprine HCl 5 MG Tablet 1 tab Orally 3 times a day, prn , Taking Venlafaxine HCl ER 75 MG Capsule Extended Release 24 Hour TAKE 1 CAPSULE BY MOUTH ONCE DAILY , Taking Wegovy 2.4 MG/0.75ML Solution Auto-injector 0.75 mL Subcutaneous once a week , Taking Meloxicam 15 MG Tablet TAKE 1 TABLET BY MOUTH ONCE DAILY WITH FOOD , Medication List reviewed and reconciled with the patient * Allergies: C efdinir: hives, Medrol: hives. Objective: * Vitals: W t: 233.0, Temp: 97.9, BP: 120/78, HR: 98, Nurse: SANIYA, Ht: 65, BMI:38.77. * Examination: E NT/Respiratory: General Appearance: N AD. O ral cavity : e rythema without exudate on pharynx. N raisa : n o cervical lymphadenopathy. H eart : R RR.? Assessment: * Assessment: Lorri EHRRINGI - J06.9 (Primary) Plan: * Treatment: Value Reference Range w bc 9.7 3.5 - 10 * l ym 29.3% 15 - 50 * m id 6.9% 2 - 15 * g ran 63.8% 35 - 80 * r bc 4.63 3.5 - 5.5 * h gb 14.4 11.5 - 16.5 * h ct 42.5 35 - 55 * m cv 91.9 75 - 100 * m ch 31.1 25 - 35 * m chc 33.9 31 - 38 * p lat 251 100 - 400 * Starla Torrez 02/01/2025 03:58: 57 PM EDT > Provider reviewed results while patient in office.Rosendo Tilley 02/01/2025 06:33:18 PM EDT > * Procedure Codes: 8 5025 CBC WITH AUTO DIFF, 73887 CAPILLARY BLOOD DRAW, 3074F SYST BP LT 130 MM HG, 3078F DIAST BP < 80 MM HG, 1036F TOBACCO NON-USER * Follow Up: p rn * Images: Billing Information: * Visit Code: 04291 Office Visit, Est Pt., Level 3. * Procedure Codes: 95712 CBC WITH AUTO DIFF. 02264 CAPILLARY BLOOD DRAW. 3074F SYST BP LT 130 MM HG. 3078F DIAST BP < 80 MM HG. 1036F TOBACCO NON-USER. * Electronic signature of Jadyn Tilley MD on 03/30/2025 at 03:26 PM EST Sign off status: Pending * Provider: Sienna Tilley M.D. Date: 0 02/01/2025 Generated for Cinthia hale/Dayana/Ernesto on: 1 05/30/2024 03:26 PM EST History and Physical Notes * HPI (History of Present Illness) Category Sub-Category Detail Notes Category Not es ENT/respiratory sore throat Pt states her throat has felt scratchy cough Pt states on 01/26 s he had clear nasal drainage. Pt states she has a wet cough and clear sputum is coming up. headache Pt states she wakes up with a headache and take medicine and will get another later in the afternoon, both sinuses nasal congestion clear drainage, snee zing but not a lot Examination Category Sub-Category Detail Notes Category Not es ENT/Respiratory Oral cavity : erythema without exudate on pharynx Neck : no cervical lymphade nopathy Heart : RRR General Appearance: NAD
--- OUTSIDE RECORDS SUMMARY | 2025-03-16 10:45 | XMS_ITS ---
[facility] Address [address] [place] [phone] Care Team Providers Care Tapering Machine Operator Name Role Phone Miguel Carmen Primary Care Provider Michelle Granados [phone] Allergies Allergen (clinical drug ingredient) Drug/Non Drug Allergy documented on EMR Reaction Allergy Type Onset Date Status cefdinir Cefdinir hives Drug Allergy Active methylprednisolone Medrol hives Drug Allergy Active Results Component Value Reference Range Notes Ultrasound : Thigh lesion, l eft Reviewed date:03/22/2025 09:47:39 AM Interpretation:nonspecific area of heterogeneity. Performing Lab: Notes/Report: nonspecific area of heterogeneity. REASON FOR VISIT knot on left thigh Medications Medication SIG (Take, Route, Frequency, Duration) Notes Start Date End Date Status Meloxicam 15 MG TAKE 1 TABLET BY ONCE DAILY WITH FOOD; Duration: 90 Active Wegovy 2.4 MG/0.75ML 0.75 mL Subcutaneou s once a week; Duration: 30 days Active Cyclobenzaprine HCl 5 MG 1 tab Orally 3 times a day, prn 11/04/2024 Active Venlafaxine HCl ER 75 MG 1 capsule with food Orally Once a day; Duration: 90 days Active dexAMETHasone 4 MG 1 tablet Orally twic e a day; Duration: 5 days 11/04/2024 Active Levothyroxine Sodium 25 MCG 1 tab(s) ora lly once a day; Duration: 30 day(s) Active Vitamin D3 50 MCG (1999) as directed orally once a day; Duration: 30 day(s) 11/15/2020 Active Vital Signs Blood pressure systolic 122 mm Hg 03/16/20 25 Blood pressure diastolic 80 mm Hg 025 Heart Rate 91 /min 03/16/2025 Height 65 in 03/16/2025 Weight 235 lbs 03/16/2025 BMI 39.1 kg/m2 03/16/2025 Encounters Encounter Location Date Provider Diagnosis [facility] [address] [place] [id number] 03/16/2025 Michelle Granados Mass of left thigh R22.42 Assessments Encounter Date Diagnosis (ICD Code) Assessment Notes Treatment Notes Treatment Clinical Notes Section Notes 03/16/2025 Mass of left thigh (ICD-10 - R22.42) Plan Of Treatment Next Appt Details Follow Up: via phone to repo rt test results, Reason: Progress Notes * NERY, MICHAEL LudneDOB:1970 (54 yo F)Acc No.[id number]:03/16/2025 Progress Notes Patient: MICHAEL CESPEDES Provider: JAVED Choi :1970 A ge:54 Y S ex:Female Date:03/16/2025 Address:[address] [place] [address] [address] [place], [id number] Pcp:Miguel Carmen Subjective: * Chief Complaints: * 1 . Knot on left thigh. * HPI: D ermatology: 54 year old female presents with c/o knot P t states she has a knot on her left thigh. Pt states she seen it Thursday. Pt states it is sore. * ROS: D ERMATOLOGY: no R gino. n o H nataly. G ASTROENTEROLOGY: no N ausea. n o V omiting. n o D iarrhea.? U ROLOGY: no D ifficulty urinating. n o B lood in urine. * Medical History: Xochilt Robles in [place]. * Surgical History: T hyroidectomy , 06/09/2006. * Hospitalization/Major Diagno stic Procedure: F ell on [facility] ER 05/2010. * Family History: [...] 3 times a day, prn , Taking Wegovy 2.4 MG/0.75ML Solution Auto- injector 0.75 mL Subcutaneous once a week , Taking Meloxicam 15 MG Tablet TAKE 1 TABLET BY MOUTH ONCE DAILY WITH FOOD , Taking Venlafaxine HCl ER 75 MG Capsule Extended Release 24 Hour 1 capsule with food Orally Once a day , Discontinued Zithromax Z-Anshu 250 MG Tablet as directed Orally daily , Medication List reviewed and reconciled with the patient * Allergies: C efdinir: hives, Medrol: hives. Objective: * Vitals: W t: 235, Temp: 97.5, BP: 122/80, HR: 91, Nurse: pe, Ht: 65, BMI:39.1. * Examination: G eneral Examination: General Appearance: N AD. C hest: n ormal shape and expansion. H eart: R SR. L ungs: c lear to auscultation. E xtremities: l eft thigh with a tender, palpable mass. Assessment: * Assessment: 1. M ass of left thigh - R22.42 (Primary) Plan: * Treatment: * Follow Up: v ia phone to report test results * Images: Billing Information: * Visit Code: 79084 Office Visit, Est Pt., Level 3. * Procedure Codes: * Electronic signature of JAVED Norwood on 03/30/2025 at 03:26 PM EST Sign off status: Pending * Provider: JAVED Choi Date: Generated for Cinthia hale/Dayana/Kellieitting on: 05/30/2024 03:26 PM EST History and Physical Notes * HPI (History of Present Illness) Category Sub-Category Detail Notes Category Not es Dermatology knot Pt states she frazier s a knot on her left thigh. Pt states she seen it Thursday. Pt states it is sore Examination Category Sub-Category Detail Notes Category Not es General Examination Heart: RSR Lungs: clear to auscultatio n Extremities: left thigh with a te nder, palpable mass General Appearance: NAD Chest: normal shape and exp ansion
--- NOTE | 2025-03-30 15:26 | MR_ITS ---
PROCEDURE INFORMATION: Exam: MR Left Lower Extremity Without and With Contrast, Femur. Exam date and time: 03/30/2025 3:53 PM Age: 54 years old Clinical indication: Pain; Thigh; Left; Additional info: Hard mass on left thigh for 2 weeks. Area marked with bb TECHNIQUE: Imaging protocol: Magnetic resonance imaging of the left lower extremity without and with contrast. Exam focused on the femur. Contrast material: PROHANCE; Contrast volume: 20 ml; Contrast route: IV; COMPARISON: No relevant prior studies available. FINDINGS: Bones/joints: The visible skeletal structures are unremarkable. Soft tissues: The palpable area is marked with a skin marker located on the lateral aspect of the thigh 7 cm distal to the greater trochanter of the left femur. Underlying the skin marker is a subcutaneous area of heterogeneously hypointense T1 signal with poorly defined margin. There are foci of internal fat signal that suppress on fat saturation. There is postcontrast enhancement of the T1 hypointense areas. The area measures 2.6 x 2.6 x 2.7 cm, series 19, image 20 and series 11, image 11. Reproductive: There are nabothian cysts of the cervix.The remaining soft tissue is unremarkable. IMPRESSION: 1. 2.7 cm subcutaneous poorly defined mass containing internal fat. Differential considerations include fat necrosis. A liposarcoma is not excluded. Correlation for a history of bruising or trauma to the area is recommended. Follow-up MR exam without and with IV contrast in 3 months is recommended to evaluate for resolution. The area is amenable to image guided biopsy, if needed.
--- OUTSIDE RECORDS SUMMARY | 2025-03-30 15:26 | XMS_ITS | Patient Health Record ---
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 Performing Lab: Notes/Report: nonspecific area of heterogeneity. CBC Venipuncture (in house) Reviewed date:11/09/2024 11:57:26 [...] Interpretation:Normal Performing Lab: Notes/Report: Test performed by [facility] [address] [place] [address] , [address], [place] [address] Toni Jiang MD, Powder Coat Painter CLIA: [id number] Sodium 141 135-145 mmol/L Potassium 4.4 3.5-5.3 [...] Interpretation:Normal Performing Lab: Notes/Report: Test performed by [facility] [address] [place] [address] , [place] [address] Toni Jiang MD, Powder Coat Painter CLIA: [id number] Thyroxine Free (free T4) 0.97 0.86-1.76 ng/dL P-Hemoglobin A1C Reviewed date:11/09/2024 11:57:26 AM Interpretation:Normal Performing Lab: Notes/Report: Test performed by [facility] [address] [place] [address] , [address], [place] [address] Toni Jiang MD, Powder Coat Painter CLIA: [id number] Hemoglobin A1C 5.1 <5.7 % The following HbA1c ranges recommended by the [place] [employer] (ADA) may be used as an aid in the diagnosis of diabetes mellitus. HbA1c Suggested Diagnosis >=6.5% Diabetic 5.7% - 6.4% Pre-Diabetic <5.7% Non-Diabetic P-Lipid Panel Reviewed date:11/09/2024 11:57:26 AM Interpretation:Normal Performing Lab: Notes/Report: Test performed by [facility] [address] [place] [address] , [place] [address] Toni Jiang MD, Powder Coat Painter CLIA: [id number] Cholesterol 185 <200 mg/dL Triglycerides 105 <150 [...] Interpretation:Normal Performing Lab: Notes/Report: Test performed by [facility], [address] , [address], [place] [address] Toni Jiang MD, Powder Coat Painter CLIA: [id number] TSH 2.65 0.43-5.25 mU/L P-Vitamin D 25-Hydroxy Reviewed date:11/09/2024 11:57:26 AM Interpretation:39.9 Performing Lab: Notes/Report: Test performed by [facility] [address] [place] [address] , [address], [place] [address] Toni Jiang MD, Powder Coat Painter CLIA: [id number] Vitamin D 25-Hydroxy 39.9 30.0-100.0 ng/mL Interpretation of Vitamin D 25 OH: < 20 ng/mL - Deficiency 20 - 29 ng/mL - Insufficiency 30 - 100 ng/mL - Sufficiency > 100 ng/mL - Super-therapeutic- toxicity may occur above this level. Clinical correlation required. CBC Fingerstick (in house) Reviewed date:02/01/2025 06:33:22 [...] - 38 plat 251 100 - 400 Estimated Average Glucose Reviewed date:11/09/2024 11:57:26 AM Interpretation:Normal Performing Lab: Notes/Report: Test performed by [facility] [address] [place] [address] , [address], [place] [address] Toni Jiang MD, Powder Coat Painter CLIA: [id number] Estimated Average Glucose (eAG) 100 Estimated Average Glucose (eAG) is calculated using the equation eAG = (28.7 x HbA1c) - 46.7 based on the guidelines established by the ADA. If the patient has certain diseases including kidney disease, sickle cell anemia, thalassemia, or is taking medications such as dapsone, erythropoietin, or iron, eAG should not be evaluated. Influenza Screen (in house) Reviewed date:04/25/2024 07:46:14 [...] Interpretation:neg Performing Lab: Notes/Report: neg Result: neg Medications Medication SIG (Take, Route, Frequency, Duration) [...] 30 day(s) Active Vitamin D3 50 MCG (2000 UT) as directed orally once a day; Duration: 30 day(s) 11/15/2020 Active Immunizations Vaccine Route Administration Date Status Comme nts COVID 19 Moderna Unknown 06/06/2020 Administered COVID 19 Moderna Unknown 07/06/2020 Administered COVID 19 Moderna Unknown 03/22/2021 Administered Flublok IM Intramuscular 02/21/2020 Administered Fluzone Quad (6months&older) Unknown 03/21/2019 Administered Hepatitis A (adult) Unknown 09/30/2018 Administered Hepatitis B (20 and more) Unknown 04/26/2007 Administer ed Hepatitis B (20 and more) Unknown 06/10/2007 Administer ed Hepatitis B (20 and more) Unknown 10/12/2007 Administer ed Tetanus Tdap-Adacel (over 7yrs) IM Intramuscular 07/21/2018 Administered Problems Problem Type SNOMED Code ICD Code Onset Dates Problem Status W/U Status Risk Notes Problem Sinusitis (42340916) Sinusitis (J32.9) Active confirmed Problem Hypothyroidism (19055664) Hypothyroidism (acquired) (E03.9) Active confirmed Problem Vitamin D deficiency (85020884) Vitamin D deficiency (E55.9) Active confirmed Problem Sciatic nerve lesion (057586272) Piriformis syndrome of right side (G57.01) Active confirmed Problem Mixed anxiety and depressive disorder (720600997) Depression with anxiety (F41.8) Active confirmed Problem Morbid obesity (disorder) (309715725) Morbid (severe) obesity due to excess calories (E66.01) Active confirmed Problem Acquired hypothyroidism (561828743) Acquired hypothyroidism (E03.9) Active confirmed Problem Polyarthritis (413449714) Polyarthritis (M13.0) Active confirmed Problem Body mass index 40+ - morbidly obese (434148020) BMI 40.0-44.9, adult (Z68.41) Active confirmed Problem Morbid obesity (450762975) Obesity, morbid, BMI 40.0-49.9 (E66.01) Active confirmed Problem Twitching eye (finding) (408932468) Eye muscle twitches (R25.3) Active confirmed Problem Body mass index 40+ - severely obese (268715947) Body mass index [BMI] 40.0-44.9, adult (Z68.41) Active confirmed Vital Signs Heart Rate 91 /min 03/16/2025 Blood pressure diastolic 80 mm Hg 03/16/2025 Height 65 in 03/16/2025 Blood pressure systolic 122 mm Hg 03/16/2025 Weight 235 lbs 03/16/2025 BMI 39.1 kg/m2 03/16/2025 Encounters Encounter Location Date Provider Diagnosis [facility] [facility] [address], [place] [id number] 04/25/2024 Alva Stoddard Sinusitis J32.9 [facility] [facility] [address] [place], [place] [id number] 08/05/2024 Michelle Granados BMI 40.0-44.9, adult Z68.41 and Encounter for weight management Z76.89 [facility] [address] [facility] [address] [place], [place] [id number] 11/04/2024 Michelle Granados Encounter for weight management Z76.89 ; Piriformis syndrome of right side G57.01 ; Hypothyroidism (acquired) E03.9 ; Vitamin D deficiency E55.9 ; Screening for diabetes mellitus Z13.1 ; Polyarthritis M13.0 ; Screening, lipid Z13.220 ; Depression with anxiety F41.8 and Obesity, morbid, BMI 40.0-49.9 E66.01 [facility] [address] [place], [place] [id number] 02/01/2025 Rosendo [place] Acute URI J06.9 [facility] [address] [place], [place] [id number] 03/16/2025 Michelle Tjdy Mass of left thigh R22.42 [facility] [address] [place], [place] [id number] 03/31/2024 R Jairo Nella [facility] [address] [place], [place] [id number] 04/27/2024 R Jairo Nella [facility] [address] [place], [place] [id number] 07/29/2024 Michelle Tjdy [facility] [address] [place], [place] [id number] 11/09/2024 Michelle Crowdy [facility] [address] [place], [place] [id number] 12/12/2024 R Jairo Nella Encounter for weight management Z76.89 [facility] [address] [place], [place] [id number] 02/20/2025 R Jairo Nella [facility] [address] [place], [place] [id number] 03/22/2025 Michelle Roberta Assessments Encounter Date Diagnosis (ICD Code) Assessment [...] Mass of left thigh (ICD-10 - R22.42) 12/12/2024 Encounter for weight management (ICD-10 - Z76.89) 04/25/2024 Sinusitis (ICD-10 - J32.9) fluids, rest, supportive measures for fever/symptom relief, fluids, rest, supportive measures for fever/symptom relief 11/04/2024 Hypothyroidism (acquired) (ICD-10 - E03.9) 11/04/2024 Vitamin D deficiency (ICD-10 - E55.9) 11/04/2024 Screening for diabetes mellitus (ICD-10 - Z13.1) 11/04/2024 Polyarthritis (ICD-10 - M13.0) 11/04/2024 Screening, lipid (ICD-10 - Z13.220) 11/04/2024 Depression with anxiety (ICD-10 - F41.8) 11/04/2024 Obesity, morbid, BMI 40.0-49.9 (ICD-10 - E66.01) Plan Of Treatment Pending Test Test Name Order Date Mammogram 02/28/2025 MRI : Thigh, left, with and without cont rast 03/24/2025 Insurance Providers Payer Name Payer Address Payer Phone Subscriber Number Group Number Insured Name Patient Relationship to Insured Coverage Start Date Coverage End Date [employer]IELD [address] [place] [address] [id number] MICHAEL GABRIEL Self - patient is the insured Medical (General) History Medical History History ICD Code 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
[2025-03-30] MEDS: GADOTERIDOL INJ 20ML SYRINGE 20 ML IV (17:01)
== END 2025-03-30 23:59 | disposition home or self-care (01) ==
LOC: RAD 15:24
PROVIDERS: PCP Physician Assistant; Visit Provider Physician Assistant
DX: R22.42 Localized swelling, mass and lump, left lower limb (principal)
CPT/HCPCS: 73720; A9576